=== PATIENT | female | born 1945 | race Caucasian/White ===

== ENCOUNTER 2020-06-13 09:00 | Outpatient (RCR) | payer MEDICARE, SELFPAY ==
--- NOTE | 2020-05-23 12:33 | MHC.PT.EP ---
[facility] [place] [facility] [place] [facility] [place] [facility] [address] Binta Keane [address] [phone] F: [phone] F: [phone] F: [phone] F: [phone] Physical Therapy Plan of Care Date of Evaluation: 05/23/20 Date of Surgery: Diagnosis: R>L shoulder pain Date of script 05/19/2020 onset of sx last fall progressively worse over past few months (-) trauma Assessment: Pt is a 74 y/o R hand dominant female with PMH significant for PACEMAKER, recently expressing gradual progressive onset of R>L shoulder pain which began last winter when pt was taking care of ill . Pt reports progressive intensity of R>L anterior/lateral shoulder pain resulting in difficulty with dressing, hygiene and lifting tasks. She is currently waking at night due to sx in her shoulder and verbalizes frustration of worsening pain. She is verbalizing her R shoulder is sometimes painful at rest, left shoulder intensity is not nearly as bad. She is TTP over long head of biceps, anterior GH joint, distal supraspinatus tendon. She exhibits (+) impingement testing, pain and weakness with resisted IR screening, impaired GH mechanics and exhibits guarded protracted/elevated scapula, IR R shoulder at rest. She would benefit from attending skilled PT services at a frequency of 2x/week x 4-6 weeks to address impairments/deficits of impaired ROM, address issues of weakness posterior RTC and scapular stabilizers, improve posture/mechanics for ADLS, and educate pt regarding pain management/positioning education. She was educated regarding the benefit of using a lumbar support when sitting and external support of pillows under her arm for reading or SL position in effort to unweight GH joint. She was advised to trial ice pack over her clothing inside of a pillowcase x 10-15 minutes as needed for pain relief of R shoulder. She was also trialed with ROCKTAPE three I strips (sensation intact pre application, educated re: removals/adverse reactions/indications for use) for R RTC postural support with (+) outcome. She verbalizes support and reduction in pain with trial. She was advised to remove tape no later than 48 hours with education of skin monitoring pre removal. She exhibits excellent rehab potential. Frequency and Duration: The patient will be seen 2x/week x 4-6 weeks Short Term Goals: 1. Reduce R shoulder pain by 25% to rating on average to 4-5/10. 2.Pt will be able to don coat with good mechanics with R shoulder. 3.Pt will improve sleep tolerance to >6 hours without disturbance secondary to shoulder pain. 4. Pt will be able to reach R shoulder behind back to complete personal hygiene with improved ability. 5. Initiate HEP, self management with trial of ice, positioning, and posture. Ski Lift Operator Goals: 1. Pt will report R shoulder pain no greater than 3/10 with dressing/ADLS. 2. Pt will demonstrate R shoulder flexion 120 AAROM/AROM; 5/5 strength to be able to reach into a cabinet. 3. Pt will be able to shave her underarm with improved ability sx <4/10. 4. Pt will be I HEP and demonstrate carryover of pain management strategy. Treatment Plan: Modalities to reduce pain, spasms and effusion. Manual therapy to restore motion and function. Therapeutic exercise to improve strength and flexibility. Neuromuscular re-education for posture and balance. Therapeutic activities to return to functional activities of daily living. Please sign and return to therapist. Thank you for your referral.
--- NOTE | 2020-06-08 11:58 | MHC.PT.OD ---
[facility] [place] Office [place] Office [place] Office [address] Binta Keane [address] [phone] F: [phone] F: [phone] F: [phone] F: [phone] Physical Therapy Daily Note Diagnosis: R>L shoulder pain Date of script 05/19/2020 onset of sx last fall progressively worse over past few months (-) trauma Date of Surgery: Date of Evaluation: 05/23/20 Date of Treatment: 06/08/20 Treatments to Date: 5 Cancellations to Date: No Shows to Date: Authorized Visits: Insurance End Date: Precautions/ Contraindications:Pacemaker NO TENS/ESTIM Subjective: Reports her shoulder has been much more sore the past few days, 5+/10 at rest, worse with movement. Was woken from sleep numerous times last night due to pain in her R shoulder. Expressing frustration in regards to ongoing sx/pain intensity. She has been icing and taking ibuprofen as recommended. Pain Score and Location: 7 R shoulder Objective Flowsheet: Tests & Measures Taking prescription ibuprofen 1 tablet every 8 hours, has been icing 1-3xdaily (+) palpable clunk with PROM of R GH joint, pain limiting PROM tolerance/ AAROM tolerance (+) compensatory UT shrug with impaired scapulohumeral rhythm (+) [place] (+) Pain and weak IR, ABD (+) TTP long head biceps, anterior shoulder Exercises AROM flexion R shoulder 105 AROM abduction R shoulder 80 degrees AROM IR lateral buttocks AROM ER C3 Significant pain with hori Add L shoulder flexion 132 L shoulder abduction 128 L shoulder IR L1 Pain-free pendulums x 4 minutes Scapular retraction with arms by side x 2 sets 5R AAROM cane flexion in supine x 5R x 20 sec hold AAROM cane scaption in supine HELD ROWS TODAY in trial to assess response to global sx AAROM brayan seated for flexion and scaption x 5R each x 10 sec hold Education re: PROM R shoulder flexion in supine, gentle inferior R GH mobs to tolerance, STM to R lateral shoulder while supine post US. Modalities Seated for continuous US 1.2 alba cm2 x 8 minute 1MHZ to R lateral shoulder in effort to ease pain and improve soft tissue extensibility. Assessment: Fannie has attended 5 sessions of PT to date, demonstrating initial AAROM/AROM improvements of R>L shoulder. Her worsening R shoulder pain with continues to be her biggest factor of concern. She has begin to plateau in her ability to further progress of AAROM>AROM. Her motion slightly improved initially, however now her movement is limited by pain. I feel she would benefit from referral to orthopedics and/or xray>MRI assessment to determine if there if in fact RTC pathology. She has been given the tools/knowledge/HEP in order to maintain her ROM at this time but has been unable to surpass her current ROM due to pain levels and palpable clunking of her shoulder. She demonstrated limited tolerance in her ability to complete low level strengthening activities which is why I feel referral is warranted. She has received treating including STM, US, manual GH mobilization, PROM and therex. Due to pacemaker, she is not a candidate for trial of electrical stimulation. We discussed continued use and trial of increasing frequency of icing to aide in sx. PT Plan: Pt to see Arti Rowley NP next week. Await plan - ? Hold from PT await further imaging- Please advise and thank you for this referral. Short Term Goals: 1. Reduce R shoulder pain by 25% to rating on average to 4-5/10. (06/08: rates lowest is 5/10). 2.Pt will be able to don coat with good mechanics with R shoulder. (06/08: given education to don R UE first, has been doing, goal met. Still has pain but better knowledge) 3.Pt will improve sleep tolerance to >6 hours without disturbance secondary to shoulder pain. (06/08: Having issues sleeping waking at night several times due to pain). 4. Pt will be able to reach R shoulder behind back to complete personal hygiene with improved ability. 5. Initiate HEP, self management with trial of ice, positioning, and posture. Country Sales Manager Goals: 1. Pt will report R shoulder pain no greater than 3/10 with dressing/ADLS. (06/08: no change not med) 2. Pt will demonstrate R shoulder flexion 120 (06/08: some improvement AAROM/AROM; 5/5 strength to be able to reach into a cabinet. (Strength abd 3-/5) 3. Pt will be able to shave her underarm with improved ability sx <4/10. (06/08/ not met) 4. Pt will be I HEP and demonstrate carryover of pain management strategy. (06/08: Current HEP met is buying a shoulder brayan for home, advocated low reps high frequency to avoid irritation of current sx, pt educated and informed not to push into pain- gentle stretch only is the goal). Electronically signed by: Nithya Zamorano, PT, DPT
== END 2020-07-27 09:57 | disposition other institution (70) ==
LOC: HO.PTWFD 09:00
PROVIDERS: Visit Provider Hospitalist
DX: M25.511 Pain in right shoulder (principal); M25.512 Pain in left shoulder; G89.29 Other chronic pain
CPT/HCPCS: 97035; 97110; 97140; 97161; 97530; 97535

== ENCOUNTER 2020-08-04 08:12 | Outpatient (REF) | payer MEDICARE, SELFPAY ==
[2020-08-04 11:37] LABS: Hematocrit 43.4 % (37-47); Mean Corpuscular HGB Conc 32.3 g/dl (31.0-35.0); Mean Corpuscular Hemoglobin 29.4 pg (27.0-33.0); Mean Platelet Volume 8.6 fL (9.4-12.3); Platelet Count 263 X10*3/uL (160-400); Red Blood Count 4.77 X10*6/uL (4.20-5.50); Red Cell Distribution Width 12.9 % (11.0-16.0); White Blood Count 9.2 X10*3/uL (4.8-10.8)
[2020-08-04 11:58] LABS: Glucose Urine UA NEG (NEG); Leukocyte Esterase Urine 1+ (NEG); Nitrite Urine NEG (NEG); Urine Blood TRACE (NEG); Urine Ketones NEG (NEG); Urine Protein NEG (NEG-TRACE)
[2020-08-04 12:00] LABS: Appearance Urine CLEAR; Color Urine YELLOW
[2020-08-04 12:05] LABS: Alanine Aminotransferase 14 U/L (0-31); Alkaline Phosphatase 75 U/L (39-117); Anion Gap 11 (12-20); Aspartate Amino Transferase 15 U/L (5-31); Bilirubin Direct 0.3 mg/dL (0.0-0.5); Bilirubin Total 0.7 mg/dL (0.0-1.0); Blood Urea Nitrogen 20 mg/dL (9-16); Carbon Dioxide 29 mmol/L (22-29); Chloride 102 mmol/L (96-108); Cholesterol 199 mg/dL; Estimated Glomerular Filt Rate 55; Glucose Fasting 107 mg/dL (60-99); HDL Cholesterol 59 mg/dL; LDL Cholesterol Calculated 129 mg/dl; Potassium 4.9 mmol/L (3.3-5.1); Sodium 137 mmol/L (135-145); Total Protein 6.7 g/dL (6.5-8.0); Triglycerides 59 mg/dL
[2020-08-04 12:26] LABS: Bacteria Urine TRACE /LPF; RBC Urine 0 /HPF (0); Renal Epithelial Cells Urine TRACE /LPF; Squamous Epithelial Cell Urine TRACE /LPF; TSH reflex Free T4 2.87 uIU/mL (0.32-4.0)
== END 2020-08-04 08:13 | disposition home or self-care (01) ==
LOC: HO.WFDLDS 08:12
PROVIDERS: Visit Provider Hospitalist
DX: E78.00 Pure hypercholesterolemia, unspecified (principal); E03.9 Hypothyroidism, unspecified; I10 Essential (primary) hypertension; S46.911D Strain of unspecified muscle, fascia and tendon at shoulder and upper arm level, right arm, subsequent encounter; X58.XXXD Exposure to other specified factors, subsequent encounter
CPT/HCPCS: 36415; 80048; 80061; 80076; 81001; 84443; 85027

== ENCOUNTER 2021-02-12 08:50 | Outpatient (REF) | payer MEDICARE, SELFPAY ==
--- NOTE | ~2021-02-12 | MM_ITS ---
EXAMINATION: MM SCREENING DIGITAL BREAST TOMOSYNTHESIS, BILATERAL CLINICAL INFORMATION: Screening. Asymptomatic. The lifetime risk of breast cancer based on the Tyrer-Cuzick Model is 3%. COMPARISON: Mammography: 02/21/2020, 02/07/2020, 10/02/2018, 11/13/2017 TECHNIQUE: Digital breast tomosynthesis is performed in both the craniocaudal and mediolateral oblique views along with computer-aided detection (CAD). Synthesized 2D images are generated from the tomosynthesis. Additional exaggerated left CC and additional left MLO views are provided. FINDINGS: The breasts are heterogeneously dense, which may obscure small masses (ACR BI-RADS breast composition Category c). There are no significant masses, abnormal calcifications, or other abnormalities. Parenchymal pattern is similar to prior studies. There is no developing density or interval mass or architectural abnormality. Pacemaker generator partly overlies the posterior upper left axilla on the MLO view. There are no significant changes. MM/MM tomosynthesis screening BI IMPRESSION: No mammographic evidence of malignancy. ASSESSMENT: BI-RADS 1: Negative RECOMMENDATION: Routine annual mammography screening. This patient's information was entered into a reminder system with a target due date for their next mammogram.
== END 2021-02-12 08:51 | disposition home or self-care (01) ==
LOC: HO.MAMMO 08:50
PROVIDERS: PCP Hospitalist; Visit Provider Internal Medicine
DX: Z12.31 Encounter for screening mammogram for malignant neoplasm of breast (principal)
CPT/HCPCS: 77063; 77067

== ENCOUNTER 2021-02-22 08:22 | Outpatient (REF) | payer MEDICARE, SELFPAY ==
[2021-02-22 11:32] LABS: Anion Gap 13 (12-20); B Type Natriuretic Peptide 22 pg/mL (<100); Blood Urea Nitrogen 17 mg/dL (9-16); Calcium 9.4 mg/dL (8.4-10.2); Carbon Dioxide 25 mmol/L (22-29); Chloride 109 mmol/L (96-108); Estimated Glomerular Filt Rate 54; Glucose Random 98 mg/dL (60-115); Potassium 3.8 mmol/L (3.3-5.1); Sodium 143 mmol/L (135-145)
== END 2021-02-22 08:23 | disposition home or self-care (01) ==
LOC: HO.WFDLDS 08:22
PROVIDERS: PCP Orthopaedic Surgery; Visit Provider Family Medicine
DX: Z00.00 Encounter for general adult medical examination without abnormal findings (principal); I50.9 Heart failure, unspecified
CPT/HCPCS: 36415; 80048; 83880

== ENCOUNTER 2022-04-18 15:01 | Outpatient (REF) | payer MEDICARE, SELFPAY ==
--- NOTE | ~2022-04-18 | MM_ITS ---
EXAMINATION: MM SCREENING DIGITAL BREAST TOMOSYNTHESIS, BILATERAL CLINICAL INFORMATION: Screening. Asymptomatic. The lifetime risk of breast cancer based on the Tyrer-Cuzick Model is 2%. COMPARISON: Mammography: 02/12/2021, 02/21/2020, 02/07/2020, 10/02/2018 TECHNIQUE: Digital breast tomosynthesis is performed in both the craniocaudal and mediolateral oblique views along with computer-aided detection (CAD). Synthesized 2D images are generated from the tomosynthesis. Additional left MLO view is provided. FINDINGS: The breasts are heterogeneously dense, which may obscure small masses (ACR BI-RADS breast composition Category c). Breast tissue composition borders on average fibroglandular. Right CC view has a 0.6 cm oval asymmetric density approximately 7 cm from the nipple. No correlate on MLO view. Patient will be recalled for additional imaging. The remainder of the bilateral breasts show no significant changes from prior studies. There are no abnormal calcifications. The axilla are unremarkable. The skin contours are smooth. Pacemaker generator is partly imaged high left axilla on MLO view. MM/MM tomosynthesis screening BI IMPRESSION: Right: -Asymmetric density mid medial right breast on CC view. Left: -No mammographic evidence of malignancy. ASSESSMENT: BI-RADS 0: Incomplete - Need Additional Imaging Evaluation RECOMMENDATION: 1. Additional views of the right breast (rolled CC x 2; spot CC). 2. Targeted ultrasound if warranted after review of the additional views. 3. Radiology department staff will contact the patient for additional imaging. This patient's information was entered into a reminder system with a target due date for their next mammogram.
== END 2022-04-18 15:02 | disposition home or self-care (01) ==
LOC: HO.MAMMO 15:01
PROVIDERS: PCP Hospitalist; Visit Provider Hospitalist
DX: Z12.31 Encounter for screening mammogram for malignant neoplasm of breast (principal)
CPT/HCPCS: 77063; 77067

== ENCOUNTER 2022-04-30 13:12 | Outpatient (REF) | payer MEDICARE, SELFPAY ==
--- NOTE | ~2022-04-30 | MM_ITS ---
EXAMINATION: MM DIAGNOSTIC DIGITAL BREAST TOMOSYNTHESIS, RIGHT CLINICAL INFORMATION: Recall from screening for small asymmetric density mid medial right breast on CC view. No MLO correlate. TC score 2%. COMPARISON: Mammography: 04/18/2022, 02/12/2021, 02/07/2020 TECHNIQUE: Digital breast tomosynthesis is performed. 2D images are generated from the tomosynthesis. The following views are obtained: Rolled right CC x2, spot right CC. FINDINGS: The breasts are heterogeneously dense, which may obscure small masses (ACR BI-RADS breast composition Category c). Breast tissue composition borders on average fibroglandular. The additional views show no persistent asymmetric density. No developing density or architectural abnormality. Fibroglandular densities are similar to prior studies. Results are discussed with the patient at time of visit. MM/MM tomosynthesis added views R IMPRESSION: Additional views show no significant changes from prior studies. ASSESSMENT: BI-RADS 2: Benign RECOMMENDATION: Routine annual mammography screening. This patient's information was entered into a reminder system with a target due date for their next mammogram.
== END 2022-04-30 13:13 | disposition home or self-care (01) ==
LOC: HO.MAMMO 13:12
PROVIDERS: PCP Hospitalist; Visit Provider Hospitalist
DX: R92.2 Inconclusive mammogram (principal)
CPT/HCPCS: 77061; 77065

== ENCOUNTER 2022-10-24 07:47 | Outpatient (REF) | payer MEDICARE, SELFPAY ==
[2022-10-24 12:40] LABS: Alanine Aminotransferase 13 U/L (0-31); Alkaline Phosphatase 79 U/L (39-117); Anion Gap 13 (12-20); Aspartate Amino Transferase 17 U/L (5-31); Bilirubin Total 0.8 mg/dL (0.0-1.0); Blood Urea Nitrogen 14 mg/dL (9-16); Calcium 9.3 mg/dL (8.4-10.2); Carbon Dioxide 26 mmol/L (22-29); Chloride 109 mmol/L (96-108); Cholesterol 200 mg/dL; Estimated Glomerular Filt Rate > 60; Glucose Fasting 97 mg/dL (60-99); HDL Cholesterol 48 mg/dL; LDL Cholesterol Calculated 130 mg/dl; Potassium 4.5 mmol/L (3.3-5.1); Sodium 143 mmol/L (135-145); Total Protein 6.4 g/dL (6.5-8.0); Triglycerides 113 mg/dL; Vitamin B12 > 2000 pg/mL (200-900)
[2022-11-01 16:04] LABS: Vitamin D 25-OH, D2 <4 ng/mL; Vitamin D 25-OH, D3 35 ng/mL; Vitamin D 25-OH, Total 35 ng/mL (30-100)
== END 2022-10-24 07:48 | disposition home or self-care (01) ==
LOC: HO.10HDL 07:47
PROVIDERS: Visit Provider Hospitalist
DX: E03.9 Hypothyroidism, unspecified (principal); E66.9 Obesity, unspecified; E78.00 Pure hypercholesterolemia, unspecified; R53.83 Other fatigue; E55.9 Vitamin D deficiency, unspecified; I10 Essential (primary) hypertension
CPT/HCPCS: 36415; 80053; 80061; 82306; 82607; 84443

== ENCOUNTER 2023-04-24 08:49 | Outpatient (REF) | payer MEDICARE, SELFPAY ==
--- NOTE | ~2023-04-24 | MM_ITS ---
EXAMINATION: MM SCREENING DIGITAL BREAST TOMOSYNTHESIS, BILATERAL CLINICAL INFORMATION: Screening. Asymptomatic. COMPARISON: Mammography: This study is compared with prior exams dating back to 2019. TECHNIQUE: Digital breast tomosynthesis is performed in both the craniocaudal and mediolateral oblique views along with computer-aided detection (CAD). Synthesized 2D images are generated from the tomosynthesis. FINDINGS: The breasts are heterogeneously dense, which may obscure small masses (ACR BI-RADS breast composition Category c). There is a pacemaker the superior aspect of the left side of the chest. There are no significant masses, abnormal calcifications, or other abnormalities. MM/MM tomosynthesis screening BI IMPRESSION: No mammographic evidence of malignancy. ASSESSMENT: BI-RADS BI-RADS 1 - Negative RECOMMENDATION: Routine annual mammography screening. 1 year F/U This examination should not preclude the clinical evaluation of a suspicious palpable abnormality. This patient's information was entered into a reminder system with a target due date for their next mammogram.
== END 2023-04-24 08:50 | disposition home or self-care (01) ==
LOC: HO.MAMMO 08:49
PROVIDERS: PCP Hospitalist; Visit Provider Hospitalist
DX: Z12.31 Encounter for screening mammogram for malignant neoplasm of breast (principal)
CPT/HCPCS: 77063; 77067

== ENCOUNTER → 2023-04-24 09:15 | Outpatient (BNV) | payer MEDICARE, SELFPAY | PROVIDERS: PCP Hospitalist; Visit Provider Radiology Diagnostic Radiology | DX: Z12.31 Encounter for screening mammogram for malignant neoplasm of breast (principal) | CPT/HCPCS: 77063; 77067 ==

== ENCOUNTER 2024-04-16 12:13 | Outpatient (AMB) | payer MEDICARE, SELFPAY ==
--- NOTE | 2024-04-16 12:15 | A.OFFPC_ITS ---
Vital Signs 04/16/24 12:22 Height 5 ft 4 in Weight 173 lb BMI 29.7 BP 134/72 Blood Pressure Location Lt brachial Position Sitting Respiration 14 Pulse 76 Pulse Source Pulse Oximeter Pulse Oximetry (%) 97 Oxygen Delivery Method Room Air Intake Visit Reasons: Transfer of Care former [facility] Intake Note: to establish care Allergies No Known Allergies Allergy (Verified 04/16/24 12:29) Medication List - Last Reconciled 04/16/24 by Latonia Macedo, PROFESSIONAL PROGRAMMER ANALYST- aspirin (Martina Chewable Low Dose Aspirin) 81 mg PO DAILY cholecalciferol (vitamin D3) 25 mcg PO DAILY ibuprofen 400 mg PO Q8H PRN 1 month levothyroxine 50 mcg PO DAILY lisinopril 5 mg PO DAILY Tobacco use date assessed: 04/16/24 Fall risk assessment: 2 + Falls in past year Last assessed Fall Risk: 04/16/24 Dental Screening Dental Screen Date: 04/16/24 Did you have a dental visit in the last 12 months?: No Did you have a dental problem in the last 6 months where you did not have access to dental care?: No Was dental information given to patient?: Patient has dentist HPI HPI Comments History of Present Illness Details Michael 78-year-old female with vitamin-D defici ency, obesity, hyperlipidemia, hypothyroidism, hypertension, osteoarthritis, sick sinus syndrome/AF status post dual-chamber pacemaker, multiple falls, former smoker Status post pacemaker placed in 2016, right shoulder replacement Social: Lives in an in-law apartment with her son; has been [place] 52 years recently Health Maintenance: Mammo 04/24/23 normal Tdap 2021 Flu 2023 Specialists Cards annual visits Ortho Here today to [facility] care Today she would like to discuss a chronic cough that she has had for several months even years. She reports that it is a nagging cough. Does have a tickle in her throat at times. Can be associated with some mucus. Although she does report that she recently had a cold and she did not have any issues with any mucus. Sometimes she does report that she feels mucus in her throat and has a hard time getting it up. She has not tried any medications at home to help with this. She denies any trouble swallowing, asthma or COPD history. She is a former smoker quit more than 40 years ago. She is on an ARLEN inhibitor She also complains of a burning sensation described as fire that started 3-4 months ago in her left wrist. About 6 months ago she did notice palpable lumps that are painless on the palmar surface of her left hand. She is right-handed. She denies any overt injury prior to the onset of the burning in her wrist. Reports that her usual activities of daily living such as driving and talking on the phone and opening jars elicit the burning sensation. She did have 2 mechanical falls in the past however this is unrelated to the burning in her wrist She has hypothyroidism and is currently maintained on levothyroxine 50 mcg. She denies any hypo or hyperthyroid symptoms. She is overdue for labs. Exam Awake alert oriented, no acute distress TM intact and clear bilat, hearing aids bilat Nares patent, turbinates within normal limits Pharynx clear without erythema or postnasal drip No thyromegaly, trachea midline Regular rate and rhythm Lung sounds clear to auscultation bilat Left arm neurovascularly intact, palpable bumps along the distal palmar crease, normal strength/tone, wrist FROM, unable to ilicit burning sensation, no obvious deformities, negative phelans and tinels Plan Check labs today. Labs from today show a normal CBC, normal CMP, normal renal function, random glucose 101, normal LFTs, total cholesterol 205, LDL 137, HDL 49, triglycerides 97, normal vitamin-D, folate normal, TSH 2.20 refill levothyroxine same sode 50 mcg sent to pharmacy will review lipid profile at next visit Stop ARLEN inhibitor to see if this is causing the cough. Refer to hand surgery for left hand wrist issue Return to the office in 2 weeks to follow up on cough and labs, sooner as needed This note is constructed using voice recognition software. While every effort has been made to ensure accuracy in operational risk analyst, still errors may have been included Sometimes, these errors may affect the content or meaning of the given sentence . Total time spent caring for the patient today was 40 minutes. This includes time spent before the visit reviewing the chart, time spent during the visit, and time spent after the visit on documentation [facility] Medical History (Updated 04/16/24 @ 13:02 by Latonia Macedo, PROFESSIONAL PROGRAMMER ANALYST-) Shoulder pain, bilateral Arthritis of right shoulder region Muscle strain of right shoulder Fatigue Left anterior shoulder pain Surgical History History of right shoulder replacement History of pacemaker Family History Father Advanced cardiac disease Emphysema of lung Mother No problems noted. Social History (Updated 04/16/24 @ 12:23 by Aaliyah Franz MA) Household Members: None Both parents involved: No Caregiver staying overnight: No Housing: House Are you a primary date night caregiver to a significant other at home: No Do you presently have visiting nurse or other home services: No 75 years or older and lives alone: No Alcohol intake: never Patient Tobacco Use Status: Never used Tobacco e-Cigarette/Vaping Use: Never Used service: No Current occupational status: retired Cognitive needs: No Hearing needs: Yes (hearing aide) Vision needs: No Questionnaire PHQ-9 Over the last 2 weeks, how often have you been bothered by any of the following problems? 1. Little interest or pleasure in doing things: not at all 2. Feeling down, depressed, or hopeless: not at all 3. Trouble falling or staying asleep, or sleeping too much: not at all 4. Feeling tired or having little energy: not at all 5. Poor appetite or overeating: not at all 6. Feeling bad about yourself - or that you are a failure or have let yourself or your family down: not at all 7. Trouble concentrating on things, such as reading the newspaper or watching television: not at all 8. Moving or speaking so slowly that other people could have noticed. Or the opposite - being so fidgety or restless that you have been moving around a lot more than usual: not at all 9. Thoughts that you would be better off or of hurting yourself in some way: not at all Total score: 0 Depression Screening Interpretation: Negative Depression Screening Done: Yes 43022 - PHQ-9 Billing: Yes Source: Developed by Drs. Artem Bustamante, Rhona Yadav, Todd Cage and colleagues, with an educational coty from [email or web address]. Thrive Questionnaire Date Thrive assessed: 04/16/24 I am a: Patient What is your living situation today?: I have a steady place to live Within the past 12 months, did the food you bought not last and you didn't have the money to get more?: Never true Within the past 12 months, did you worry whether your food would run out before you got money to buy more?: Never true Do you have trouble paying for medicines?: No Do you have trouble getting transportation to medical appointments?: No Do you have trouble paying your heating and electricity bill?: No Do you have trouble taking care of your child, family member or friend?: No Do you have trouble with day-to-day activities such as bathing, preparing meals, shopping, managing finances, etc.?: No Are you currently unemployed and looking for a job?: No Are you interested in more education?: No THRIVE Score: 0 AUDIT C Alcohol Use Questionnaire (AUDIT-C) 1. How often do you have a drink containing alcohol?: 2-3 times a week 2. How many drinks containing alcohol do you have on a typical day when you are drinking?: 1 or 2 3. How often do you have six or more drinks on one occasion?: Never Total Score: 3 Score Reviewed/Action Taken: Yes ROSALIE-7 AMB Questionnaire ROSALIE-7 Date ROSALIE - 7 assessed: 04/16/24 Feeling nervous, anxious, or on edge: 0 = Not at all Not being able to stop or control worryin = Not at all Worrying too much about different things: 0 = Not at all Trouble relaxin = Not at all Being so restless that it is hard to sit still: 0 = Not at all Becoming easily annoyed or irritable: 0 = Not at all Feeling afraid as if something awful might happen: 0 = Not at all Total ROSALIE-7 score (0-4 normal; 5-9 mild; 10-14 moderate; 15-21 severe): 0 Source: Developed by Drs. Artem Bustamante, Rhona Yadav, Todd Cage and colleagues, with an educational coty from [email or web address]. ROSALIE-7 Assessment Billing ROSALIE-7 Assessment Tool: ROSALIE-7 Assessment 07907 Physical exam (Primary Care) Vital Signs: Last Vital Signs Pulse 76 04/16/24 12:22 Resp 14 04/16/24 12:22 BP 134/72 04/16/24 12:22 Pulse Ox 97 04/16/24 12:22 Oxygen Delivery Method Room Air 04/16/24 12:22 BMI result Body Mass Index 29.7 Tobacco/Smoking Status: Tobacco use Status Tobacco use date assessed 04/16/24 04/16/24 12:25 Patient Tobacco Use Status Never used Tobacco 04/16/24 12:23 e-Cigarette/Vaping Use Never Used 04/16/24 12:25 PHQ-9: PHQ-9 Score PHQ-9: Total score 0 04/16/24 13:03 Depression Screening Interpretation: Negative Thrive Assessment: Date of Thrive Assessment Date Thrive assessed 04/16/24 04/16/24 12:18 Coding Level of Care Code Est Pt Level 5 (09793) Complex EM visit Add On G2211 Diagnoses Hypertension, essential I10 Hypothyroidism (acquired) E03.9 Vitamin D deficiency E55.9 Left wrist pain M25.532 Left hand paresthesia R20.2 Chronic cough R05.3 Cough type: chronic High cholesterol E78.00 Additional Codes ROSALIE-7 Assessment Billing - ROSALIE-7 Assessment Tool: ROSALIE-7 Assessment 24225 ([id number]) Assessment & Plan Assessment & Plan (1) Hypertension, essential: Code(s): I10 - Essential (primary) hypertension Category: Medical Plan: . (2) Hypothyroidism (acquired): Code(s): E03.9 - Hypothyroidism, unspecified Category: Medical Plan: . (3) Vitamin D deficiency: Code(s): E55.9 - Vitamin D deficiency, unspecified Category: Medical Plan: . (4) Left wrist pain: Code(s): M25.532 - Pain in left wrist Category: Medical Plan: . (5) Left hand paresthesia: Code(s): R20.2 - Paresthesia of skin Category: Medical Plan: . (6) Cough: Code(s): R05.9 - Cough, unspecified Category: Medical Qualifiers: Cough type: chronic Qualified Code(s): R05.3 - Chronic cough Plan: . (7) High cholesterol: Code(s): E78.00 - Pure hypercholesterolemia, unspecified Category: Medical Plan: . Plan . Orders: Orders TSH reflex Free T4 Today E03.9 - Hypothyroidism, unspecified, E55.9 - Vitamin D deficiency, unspecified, I10 - Essential (primary) hypertension Vitamin D 25-OH Total Today E03.9 - Hypothyroidism, unspecified, E55.9 - Vitamin D deficiency, unspecified, I10 - Essential (primary) hypertension Comprehensive [place]. Panel Fast Today E03.9 - Hypothyroidism, unspecified, E55.9 - Vitamin D deficiency, unspecified, I10 - Essential (primary) hypertension Lipid Panel Today E03.9 - Hypothyroidism, unspecified, E55.9 - Vitamin D deficiency, unspecified, I10 - Essential (primary) hypertension Microalbumin, Random (w Creat) Today E03.9 - Hypothyroidism, unspecified, E55.9 - Vitamin D deficiency, unspecified, I10 - Essential (primary) hypertension Vitamin B12 and Folate Today E03.9 - Hypothyroidism, unspecified, E55.9 - Vitamin D deficiency, unspecified, I10 - Essential (primary) hypertension Complete Blood Count no Diff Today E03.9 - Hypothyroidism, unspecified, E55.9 - Vitamin D deficiency, unspecified, I10 - Essential (primary) hypertension Referrals Hand Surgery Referral M25.532 - Pain in left wrist, R20.2 - Paresthesia of skin Medications: Refilled levothyroxine 50 mcg PO DAILY 90 tabs 1RF
[2024-04-16 12:22] VITALS: BP 134/72; PULSE 76; RESP 14; O2SAT 97; BMI 29.7
== END 2024-04-16 12:53 | disposition home or self-care (01) ==
PROVIDERS: PCP Nurse Practitioner Family; Visit Provider Nurse Practitioner Family
DX: I10 Essential (primary) hypertension (principal); E03.9 Hypothyroidism, unspecified; E55.9 Vitamin D deficiency, unspecified; M25.532 Pain in left wrist; R20.2 Paresthesia of skin; R05.3 Chronic cough; E78.00 Pure hypercholesterolemia, unspecified

== ENCOUNTER → 2024-04-16 12:13 | Outpatient (BNVA) | payer MEDICARE, SELFPAY | PROVIDERS: PCP Nurse Practitioner Family; Visit Provider Nurse Practitioner Family | DX: I10 Essential (primary) hypertension (principal); E03.9 Hypothyroidism, unspecified; E55.9 Vitamin D deficiency, unspecified; M25.532 Pain in left wrist; R20.2 Paresthesia of skin; R05.3 Chronic cough; E78.00 Pure hypercholesterolemia, unspecified; Z79.899 Other long term (current) drug therapy | CPT/HCPCS: 96127; 99212 ==

== ENCOUNTER 2024-04-16 13:13 | Outpatient (REF) | payer MEDICARE, SELFPAY ==
[2024-04-16 14:10] LABS: Hemoglobin 14.4 g/dl (12.0-16.0); Mean Corpuscular HGB Conc 33.5 g/dl (31.0-35.0); Mean Corpuscular Hemoglobin 29.7 pg (27.0-33.0); Mean Corpuscular Volume 88.7 fL (80.0-98.0); Mean Platelet Volume 9.1 fL (9.4-12.3); Platelet Count 250 X10*3/uL (160-400); Red Blood Count 4.85 X10*6/uL (4.20-5.50); Red Cell Distribution Width 12.7 % (11.0-16.0); White Blood Count 8.6 X10*3/uL (4.8-10.8)
[2024-04-16 15:07] LABS: Alanine Aminotransferase 14 U/L (0-31); Albumin Level 4.2 g/dL (3.5-5.0); Alkaline Phosphatase 80 U/L (39-117); Anion Gap 13 (12-20); Aspartate Amino Transferase 19 U/L (5-31); Bilirubin Total 0.6 mg/dL (0.0-1.0); Blood Urea Nitrogen 14 mg/dL (9-16); Calcium 9.2 mg/dL (8.4-10.2); Carbon Dioxide 27 mmol/L (22-29); Chloride 105 mmol/L (96-108); Cholesterol 205 mg/dL (<200); Estimated Glomerular Filt Rate > 60; Glucose Fasting 101 mg/dL (60-99); HDL Cholesterol 49 mg/dL (>40); LDL Cholesterol Calculated 137 mg/dL (<100); Potassium 4.2 mmol/L (3.3-5.1); Sodium 141 mmol/L (135-145); Total Protein 7.1 g/dL (6.5-8.0); Triglycerides 97 mg/dL (<150)
[2024-04-16 15:53] LABS: Vitamin D 25-OH Total 56.6 ng/mL (>30)
[2024-04-16 16:08] LABS: Folate 11.3 ng/mL (> or = 4.0); Vitamin B12 624 pg/mL (200-900)
[2024-04-16 18:00] LABS: Creatinine Urine 98.24 mg/dL; Microalbum/Creatinine Ratio Ur 6.1 ug/mg cr (<30)
== END 2024-04-16 13:14 | disposition home or self-care (01) ==
LOC: HO.WFDLDS 13:13
PROVIDERS: Visit Provider Nurse Practitioner Family
DX: E55.9 Vitamin D deficiency, unspecified (principal); E03.9 Hypothyroidism, unspecified; I10 Essential (primary) hypertension
CPT/HCPCS: 36415; 80053; 80061; 82043; 82306; 82570; 82607; 82746; 84443; 85027

== ENCOUNTER 2024-04-30 12:17 | Outpatient (AMB) | payer MEDICARE, SELFPAY ==
--- NOTE | 2024-04-30 12:19 | MHC.PC.OV ---
Vital Signs 04/30/24 12:22 04/30/24 12:40 Height 5 ft 4 in Weight 173 lb 4 oz BMI 29.7 BP 136/74 124/64 Blood Pressure Location Lt brachial Lt brachial Position Sitting Sitting Respiration 14 Pulse 73 Pulse Source Pulse Oximeter Pulse Oximetry (%) 97 Oxygen Delivery Method Room Air Intake Visit Reasons: 2 weeks 30 min fu labs/cough/HTN Intake Note: follow up on labs, and hypertension Temp Recruiter Required: No Allergies No Known Allergies Allergy (Verified 04/30/24 12:27) Medication List - Last Reconciled 04/30/24 by Latonia Macedo, PUBLIC HEALTH INSPECTOR- aspirin (Martina Chewable Low Dose Aspirin) 81 mg PO DAILY cholecalciferol (vitamin D3) 25 mcg PO DAILY ibuprofen 400 mg PO Q8H PRN 1 month levothyroxine 50 mcg PO DAILY losartan 25 mg PO DAILY Tobacco use date assessed: 04/16/24 Dental Screening Dental Screen Date: 04/16/24 HPI HPI Comments History of Present Illness Details Michael 78-year-old female with vitamin-D deficiency, obesity, hyperlipidemia, hypothyroidism, hypertension, osteoarthritis, sick sinus syndrome/AF status post dual-chamber pacemaker, multiple falls, former smoker Status post pacemaker placed in 2016, right shoulder replacement Social: Lives in an in-law apartment with her son; has been [place] 52 years recently Health Maintenance: Mammo 04/24/23 normal Tdap 2021 Flu 2023 Specialists Cards annual visits Ortho Since last OV, her ACEI was stopped to see if this was causing her cough. After 3 days she developed a headache. After walking up the stair the next day felt lightheaded. Dtr in law checked BP and reports it was elevated. She did call me and I ok'd her to go back on the ACEI as this was only causing an annoying cough and she was going away on vacation. She continued on ACEI until Friday. She started losartan 25mg on Friday and states everything has been going ok. Monitoring BP at home and stable, wonders if cuff is accurrate. Cough is much better off the ACEI. The following was reviewed w/ her today. Hyperlipidemia. She has never been on statin. DOes not like to take medication. Labs from 04/16/24 show a normal CBC, normal CMP, normal renal function, random glucose 101, normal LFTs, total cholesterol 205, LDL 137, HDL 49, triglycerides 97, normal vitamin-D, folate normal, TSH 2.20 For left hand parasthesia, left wrist pain referred to [facility] Ortho but she was seen at [facility] in the past, would like referral to Dr Tello Benavidez @ [facility]. Would like to exercise at the Center. Needs clearance letter for this. Exam Awake alert oriented, no acute distress Regular rate and rhythm Lung sounds clear to auscultation bilat Left arm neurovascularly intact, palpable bumps along the distal palmar crease, normal strength/tone, wrist FROM, unable to ilicit burning sensation, no obvious deformities, negative phelans and tinels Plan Start Zetia 10mg QD, LDL goal <70, monitor labs q 6 months. Stay off ACEI as this caused a cough. BP well controlled on Losartan 25 mg w/o side effects, cont., refill sent Exercise letter given today Bring BP cuff to next visit to eval if it is accurate, sooner with NN if you would like Referral updated for [facility] for L hand. RTO 6 months w/ repeat labs 1 week before, sooner PRN This note is constructed using voice recognition software. While every effort has been made to ensure accuracy in lumber carrier operator, still errors may have been included Sometimes, these errors may affect the content or meaning of the given sentence . Total time spent caring for the patient today was 30 minutes. This includes time spent before the visit reviewing the chart, time spent during the visit, and time spent after the visit on [id number] [facility] Medical History (Updated 04/30/24 @ 14:53 by Latonia Macedo, [facility]) Shoulder pain, bilateral Arthritis of right shoulder region Muscle strain of right shoulder Fatigue Left anterior shoulder pain Surgical History History of right shoulder replacement History of pacemaker Family History Father Advanced cardiac disease Emphysema of lung Mother No problems noted. Social History (Updated 04/16/24 @ 12:23 by Aaliyah Franz MA) Household Members: None Both parents involved: No Caregiver staying overnight: No Housing: House Are you a primary critical care clinical nurse specialist to a significant other at home: No Do you presently have visiting nurse or other home services: No 75 years or older and lives alone: No Alcohol intake: never Patient Tobacco Use Status: Never used Tobacco e-Cigarette/Vaping Use: Never Used service: No Current occupational status: retired Cognitive needs: No Hearing needs: Yes (hearing aide) Vision needs: No Questionnaire PHQ-9 Over the last 2 weeks, how often have you been bothered by any of the following problems? 1. Little interest or pleasure in doing things: not at all 2. Feeling down, depressed, or hopeless: not at all 3. Trouble falling or staying asleep, or sleeping too much: not at all 4. Feeling tired or having little energy: not at all 5. Poor appetite or overeating: not at all 6. Feeling bad about yourself - or that you are a failure or have let yourself or your family down: not at all 7. Trouble concentrating on things, such as reading the newspaper or watching television: not at all 8. Moving or speaking so slowly that other people could have noticed. Or the opposite - being so fidgety or restless that you have been moving around a lot more than usual: not at all 9. Thoughts that you would be better off or of hurting yourself in some way: not at all Total score: 0 31569 - PHQ-9 Billing: Yes Source: Developed by Drs. Artem Bustamante, Rhona Yadav, Todd Cage and colleagues, with an educational coty from [employer]. Thrive Questionnaire Date Thrive assessed: 04/30/24 I am a: Patient What is your living situation today?: I have a steady place to live Within the past 12 months, did the food you bought not last and you didn't have the money to get more?: Never true Within the past 12 months, did you worry whether your food would run out before you got money to buy more?: Never true Do you have trouble paying for medicines?: No Do you have trouble getting transportation to medical appointments?: No Do you have trouble paying your heating and electricity bill?: No Do you have trouble taking care of your child, family member or friend?: No Do you have trouble with day-to-day activities such as bathing, preparing meals, shopping, managing finances, etc.?: No Are you currently unemployed and looking for a job?: No Are you interested in more education?: No Please select the resources that you would like help with: None Currently or been in a relationship where the following occur: No concerns reported THRIVE Score: 0 AUDIT C Alcohol Use Questionnaire (AUDIT-C) 1. How often do you have a drink containing alcohol?: 2-4 times a month 2. How many drinks containing alcohol do you have on a typical day when you are drinking?: 1 or 2 3. How often do you have six or more drinks on one occasion?: Never Total Score: 2 ROSALIE-7 AMB Questionnaire ROSALIE-7 Date ROSALIE - 7 assessed: 04/30/24 Feeling nervous, anxious, or on edge: 0 = Not at all Not being able to stop or control worryin = Not at all Worrying too much about different things: 0 = Not at all Trouble relaxin = Not at all Being so restless that it is hard to sit still: 0 = Not at all Becoming easily annoyed or irritable: 0 = Not at all Feeling afraid as if something awful might happen: 0 = Not at all Total ROSALIE-7 score (0-4 normal; 5-9 mild; 10-14 moderate; 15-21 severe): 0 Source: Developed by Drs. Artem Bustamante, Rhona Yadav, Todd Cage and colleagues, with an educational coty from [employer]. ROSALIE-7 Assessment Billing ROSALIE-7 Assessment Tool: ROSALIE-7 Assessment 78952 Physical exam (Primary Care) Vital Signs: Last Vital Signs Pulse 73 04/30/24 12:22 Resp 14 04/30/24 12:22 BP 124/64 04/30/24 12:40 Pulse Ox 97 04/30/24 12:22 Oxygen Delivery Method Room Air 04/30/24 12:22 BMI result Body Mass Index 29.7 Tobacco/Smoking Status: Tobacco use Status Tobacco use date assessed 04/16/24 04/30/24 12:21 Patient Tobacco Use Status Never used Tobacco 04/30/24 12:21 e-Cigarette/Vaping Use Never Used 04/30/24 12:21 PHQ-9: PHQ-9 Score PHQ-9: Total score 0 04/30/24 12:24 Thrive Assessment: Date of Thrive Assessment Date Thrive assessed 04/30/24 04/30/24 12:21 Currently or been in a relationship where the following occur: No concerns reported Coding Level of Care Code Est Pt Level 4 (25125) Complex EM visit Add On G2211 Diagnoses Hypothyroidism (acquired) E03.9 Hypertension, essential I10 High cholesterol E78.00 Vitamin D deficiency E55.9 Left wrist pain M25.532 Left hand paresthesia R20.2 ARLEN-inhibitor cough R05.8; [id number] Additional Codes ROSALIE-7 Assessment Billing - ROSALIE-7 Assessment Tool: ROSALIE-7 Assessment 34328 ([id number]) Assessment & Plan Assessment & Plan (1) Hypothyroidism (acquired): Code(s): E03.9 - Hypothyroidism, unspecified Category: Medical Plan: . (2) Hypertension, essential: Code(s): I10 - Essential (primary) hypertension Category: Medical Plan: . (3) High cholesterol: Code(s): E78.00 - Pure hypercholesterolemia, unspecified Category: Medical Plan: . (4) Vitamin D deficiency: Code(s): E55.9 - Vitamin D deficiency, unspecified Category: Medical Plan: . (5) Left wrist pain: Code(s): M25.532 - Pain in left wrist Category: Medical Plan: . (6) Left hand paresthesia: Code(s): R20.2 - Paresthesia of skin Category: Medical Plan: . (7) ARLEN-inhibitor cough: Code(s): R05.8 - Other specified cough; T46.4X5A - Adverse effect of aueinrqzslh-xpsexnozvb-aqlpxh inhibitors, initial encounter Category: Medical Plan . Orders: Orders Vitamin D 25-OH Total 09/28/24 E03.9 - Hypothyroidism, unspecified, E55.9 - Vitamin D deficiency, unspecified, E78.00 - Pure hypercholesterolemia, unspecified, I10 - Essential (primary) hypertension Lipid Panel 09/28/24 E03.9 - Hypothyroidism, unspecified, E55.9 - Vitamin D deficiency, unspecified, E78.00 - Pure hypercholesterolemia, unspecified, I10 - Essential (primary) hypertension TSH reflex Free T4 09/28/24 E03.9 - Hypothyroidism, unspecified, E55.9 - Vitamin D deficiency, unspecified, E78.00 - Pure hypercholesterolemia, unspecified, I10 - Essential (primary) hypertension Referrals Hand Surgery Referral M25.532 - Pain in left wrist, R20.2 - Paresthesia of skin Medications: New ezetimibe (Zetia) 10 mg PO DAILY 90 tabs 2RF Refilled losartan 25 mg PO DAILY 90 tabs 0RF
[2024-04-30 12:22] VITALS: BP 136/74; PULSE 73; RESP 14; O2SAT 97; BMI 29.7
[2024-04-30 12:40] VITALS: BP 124/64
== END 2024-04-30 12:53 | disposition home or self-care (01) ==
LOC: HO.HMCFM 12:17
PROVIDERS: PCP Nurse Practitioner Family; Visit Provider Nurse Practitioner Family
DX: E03.9 Hypothyroidism, unspecified (principal); I10 Essential (primary) hypertension; E78.00 Pure hypercholesterolemia, unspecified; E55.9 Vitamin D deficiency, unspecified; M25.532 Pain in left wrist; R20.2 Paresthesia of skin; R05.8 Other specified cough; T46.4X5A Adverse effect of angiotensin-converting-enzyme inhibitors, initial encounter

== ENCOUNTER → 2024-04-30 12:17 | Outpatient (BNVA) | payer MEDICARE, SELFPAY | PROVIDERS: PCP Nurse Practitioner Family; Visit Provider Nurse Practitioner Family | DX: E03.9 Hypothyroidism, unspecified (principal); E78.00 Pure hypercholesterolemia, unspecified; E55.9 Vitamin D deficiency, unspecified; I10 Essential (primary) hypertension; M25.532 Pain in left wrist; R20.2 Paresthesia of skin; R05.8 Other specified cough; T46.4X5A Adverse effect of angiotensin-converting-enzyme inhibitors, initial encounter | CPT/HCPCS: 96127; 99212 ==

== ENCOUNTER 2024-05-05 15:04 | Outpatient (REF) | payer MEDICARE, SELFPAY ==
--- NOTE | ~2024-05-05 | MM_ITS ---
EXAMINATION: MM SCREENING DIGITAL BREAST TOMOSYNTHESIS, BILATERAL CLINICAL INFORMATION: Screening. Asymptomatic. COMPARISON: Mammography: Comparison is made with available priors TECHNIQUE: Digital breast mammography with tomosynthesis is performed in both the craniocaudal and mediolateral oblique views along with computer-aided detection (CAD). FINDINGS: The breasts are heterogeneously dense, which may obscure small masses (ACR BI-RADS breast composition Category c). Pacemaker overlies and obscures the superior posterior left breast on MLO view. There are no significant masses, abnormal calcifications, or other abnormalities. MM/MM tomosynthesis screening BI IMPRESSION: No mammographic evidence of malignancy. ASSESSMENT: BI-RADS BI-RADS 2 - Benign Findings RECOMMENDATION: Routine annual mammography screening. 1 year F/U This examination should not preclude the clinical evaluation of a suspicious palpable abnormality. This patient's information was entered into a reminder system with a target due date for their next mammogram. Electronically signed by: Fide Handy DO 05/14/2024 01:40 PM KAREN JORDAN
== END 2024-05-05 15:05 | disposition home or self-care (01) ==
LOC: HO.MAMMO 15:04
PROVIDERS: PCP Nurse Practitioner Family; Visit Provider Nurse Practitioner Family
DX: Z12.31 Encounter for screening mammogram for malignant neoplasm of breast (principal)
CPT/HCPCS: 77063; 77067

== ENCOUNTER → 2024-05-05 15:30 | Outpatient (BNV) | payer MEDICARE, SELFPAY | PROVIDERS: PCP Nurse Practitioner Family; Visit Provider Internal Medicine | DX: Z12.31 Encounter for screening mammogram for malignant neoplasm of breast (principal) | CPT/HCPCS: 77063; 77067 ==

== ENCOUNTER 2024-10-25 08:52 | Outpatient (REF) | payer MEDICARE, SELFPAY ==
--- OUTSIDE RECORDS SUMMARY | 2024-10-25 09:31 | XMS_ITS | Clinical Summary ---
Author Organization [facility] Address [address] [place] [address] Care Team Providers Care Human Resources Trainee Name Role Phone Unavailable Primary Care Provider Unavailabl e Social History Tobacco Use Types Packs/Day Years Used Date Smoking Tobacco: Never Smokeless Tobacco: Never Alcohol Use Standard Drinks/Week Comments Yes 0 (1 standard drink = 0.6 oz pur e alcohol) Comments Unknown Sex and Gender Information Value Date Recorded Sex Assigned at Not on file Legal Sex Female 8:15 PM EST Gender Identity Not on file Sexual Orientation Not on file Obstetrics History Plan of Treatment Health Maintenance Due Date Last Done Comments DTaP,Tdap,and Td Vaccines (1 - Tdap) 12/05/1962 Pneumococcal Vaccine: 50+ Ye ars (1 of 1 - PCV) 12/05/1993 Zoster Vaccines (1 of 2) 12/05/1993 RSV Immunization Adult Patie nts (1 - 1-dose 75+ series) 12/05/2018 Depression Screening 07/24/2023 Falls Risk Assessment 07/24/2023 Osteoporosis Screening (Bone Density Screening) 07/24/2023 Social Influencers of Health Screening 07/24/2023 COVID-19 Vaccine ( - 2023-2 5 season) 2024 Influenza Vaccine (Season Ended) 2025 HIB Vaccines Aged Out No longer eligi ble based on patient's age to complete this topic HPV Vaccines Aged Out No longer eligi ble based on patient's age to complete this topic Hepatitis A Vaccines Aged Out No long er eligible based on patient's age to complete this topic Hepatitis B Vaccines Aged Out No long er eligible based on patient's age to complete this topic IPV Vaccines Aged Out No longer eligi ble based on patient's age to complete this topic MMR Vaccines Aged Out No longer eligi ble based on patient's age to complete this topic Meningococcal ACWY Vaccine Aged Out N o longer eligible based on patient's age to complete this topic Meningococcal B Vaccine Aged Out No l onger eligible based on patient's age to complete this topic RSV Immunization Patients Un nuris 20 months Aged Out No longer eligible b ased on patient's age to complete this topic Varicella Vaccines Aged Out No longer eligible based on patient's age to complete this topic
--- OUTSIDE RECORDS SUMMARY | 2024-10-25 09:31 | XMS_ITS | Clinical Summary ---
Author Organization [facility] Address [address] [place] [address] Care Team Providers Care Building Manager Name Role Phone Unavailable Primary Care Provider Unavailabl e Allergies No known active allergies Medications No known medications Active Problems No known active problems Social History Tobacco Use Types Packs/Day Years Used Date Smoking Tobacco: Never Smokeless Tobacco: Never Tobacco Cessation:Counseling Given: Not Answered Alcohol Use Standard Drinks/Week Comments Yes 0 (1 standard drink = 0.6 oz pur e alcohol) social Sex and Gender Information Value Date Recorded Sex Assigned at Female 11/12/2022 1:22 PM EDT Gender Identity Not on file Sexual Orientation Not on file Job Start Date Occupation Industry Not on file Not on file Not on file Last Filed Vital Signs Vital Sign Reading Time Taken Comments Blood Pressure 157/69 11/12/2022 1:07 PM EDT Pulse 74 11/12/2022 1:07 PM EDT Temperature 36.7 ??C (98.1 ??F) 11/12/2022 1:07 PM ED T Respiratory Rate 18 11/12/2022 1:07 PM EDT Oxygen Saturation 97% 11/12/2022 1:07 PM EDT Inhaled Oxygen Concentration - - Weight 77.1 kg (170 lb) 11/12/2022 1:07 PM EDT Height 162.6 cm (5' 4 ) 11/12/2022 1:07 PM EDT Body Mass Index 29.18 11/12/2022 1:07 PM EDT Plan of Treatment Health Maintenance Due Date Last Done Comments COVID-19 Vaccine (#1) 06/06/1946 Depression Screening 1955 Preventative Health Evaluation 12/05/1961 Shingrix-Zoster Vaccine (1 of 2) 12/05/1993 Fall Risk Assessment 12/05/2008 Osteoporosis Screening (DEXA Scan) 12/05/2008 Pneumococcal Vaccine (1 of 1 - PCV) 12/05/2008 RSV Adult > 60+ Yrs or Pregn ant (1 - 1-dose 75+ series) 12/05/2018 Influenza Vaccine (#1) 2024 05/14/2022 DTap / Tdap / Td (2 - Td or Tdap) 04/09/2032 022 Hepatitis B Vaccines Aged Out No long er eligible based on patient's age to complete this topic RSV Ped < 20 months Aged Out No longe r eligible based on patient's age to complete this topic
--- OUTSIDE RECORDS SUMMARY | 2024-10-25 09:31 | XMS_ITS ---
Author Name [facility] Organization Unknown Care Team Organization Name Specialty Phone Email Start Date End Da te [employer] 09/02/2023 11/30/2023 [facility] CCDA [id number] [facility] ADT 02/08/20 23
[2024-10-25 11:32] LABS: Cholesterol 158 mg/dL (<200); HDL Cholesterol 57 mg/dL (>40); LDL Cholesterol Calculated 89 mg/dL (<100); Triglycerides 63 mg/dL (<150)
[2024-10-25 11:47] LABS: TSH reflex Free T4 4.08 uIU/mL (0.32-4.0); Vitamin D 25-OH Total 54.7 ng/mL (>30)
[2024-10-25 12:42] LABS: Free T4 (Free Thyroxine) 1.13 ng/dL (0.71-1.85)
== END 2024-10-25 08:53 | disposition home or self-care (01) ==
LOC: HO.WFDLDS 08:52
PROVIDERS: Visit Provider Nurse Practitioner Family
DX: E78.00 Pure hypercholesterolemia, unspecified (principal); E03.9 Hypothyroidism, unspecified; I10 Essential (primary) hypertension; E55.9 Vitamin D deficiency, unspecified
CPT/HCPCS: 36415; 80061; 82306; 84439; 84443

== ENCOUNTER 2024-11-01 11:45 | Outpatient (AMB) | payer MEDICARE, SELFPAY ==
--- NOTE | 2024-11-01 11:52 | AM.OFFVISMDC ---
Intake Vital Signs 11/01/24 11:59 11/01/24 12:54 11/01/24 12:56 Height 5 ft 4 in Weight 174 lb 6 oz BMI 29.9 BP 144/80 H 163/82 H 138/70 Blood Pressure Location Lt brachial Lt brachial Lt brachial Position Sitting Sitting Respiration 13 Pulse 65 Pulse Source Pulse Oximeter Temp 97.2 F Temp Source Oral Pulse Oximetry (%) 98 Oxygen Delivery Method Room Air Intake Visit Reasons: 6 mo 30 min awv labs 1 week before Intake Note: AWV and review labs. Patient c/o high blood pressure. Pleater Hand Required: No Allergies No Known Allergies Allergy (Verified 11/01/24 12:19) Medication List - Last Reconciled 11/01/24 by Latonia Macedo, [facility]- aspirin (Martina Chewable Low Dose Aspirin) 81 mg PO DAILY cholecalciferol (vitamin D3) 25 mcg PO DAILY ezetimibe (Zetia) 10 mg PO DAILY ibuprofen 400 mg PO Q8H PRN 1 month levothyroxine 50 mcg PO DAILY losartan 25 mg PO DAILY Do you need a note to return to daycare/school/sports/work: No HPI HPI Comments History of Present Illness Details Here today for AWV. The Medicare Annual Wellness Visit (AWV) is a yearly appointment with a health professional to identify health risks and help reduce them and to create or update a personalized prevention plan. During a Medicare AWV, health professionals should also review any current opioid prescriptions, detect any cognitive impairment, and establish or update medical and family history. Michael 78-year-old female with vitamin-D deficiency, obesity, hyperlipidemia, hypothyroidism, hypertension, osteoarthritis, sick sinus syndrome/AF status post dual-chamber pacemaker, multiple falls, former smoker, cataracts bilat Status post pacemaker placed in 2016, right shoulder replacement Social: Lives in an in-law apartment with her son; Emmett 52 years recently FHx: Y Health Maintenance: See scanned preventative medicine assessment with personalized health plan and screening schedule. Mammo 04/2024 Colon: cologaurd in the past, declined future fu DEXA declined PAP aged out Vaccines: Tdap 2024, Shingles UTD, to get Pneumococcal shots at Pharmacy AAA screen: n/a EKG: done today and faxed to Cards at [facility] Cards annual visits last visit 05/2024 [facility] Visual Acuity: glasses, last eye exam 09/2024 Hearing Screening: hearing aides ACP: HCP at home; MOLST given today Dietary/Nutrition/Exercise Edu provided: Y Results 10/27/24 TSH 4.08 otherwise labs wnl During the course of the visit the patient was educated and counseled about appropriate screening and preventative services. Patient instructions were provided to the patient in written or electronic format. I have reviewed and verified the above information. History of Present Illness - The patient is an 78-year-old female presenting for an annual Medicare wellness visit & routine fu of chronic conditions - The patient has noted increased blood pressure readings since July, with noted changes in medication from Lisinopril to Losartan. Current management involves Losartan 25 mg daily, with noted high readings persisting. Home log reviewed. - She has a history of essential hypertension which has been fluctuating despite management. - She has been taking vitamin D supplements, initially at 2000 IU; her levels are above the normal range, requiring adjustment. - Past issues with elevated vitamin B12 have led to cessation of supplementation for the time being. Hypothyoid - on levothyroxine, not taking alone. Taking w/ other meds in the AM. TSH a little over 4. Denies sx. HLD on Zetia, lipid profile at goal SSS s/p pacer on ASA followed by cards, denies cardiac complaints Social History - Lives with her son in an in-law apartment and has a close relationship with family. 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 - Previously a smoker but currently not smoking. - Manages daily activities independently and actively drives. - Travel plans include a trip from November 29 to December 08. - Engages in regular social activities, maintaining functional independence. Health Maintenance - Up-to-date mammogram performed in April 2023 - Up-to-date on Tdap vaccination - Pneumococcal vaccinations recommended but unclear from patient's records - Shingles vaccine completed - Colon cancer screening with Cologuard after a prior negative colonoscopy Review of Systems - Cardiac: Reports increased blood pressure. Reports no palpitations besides prior AFib. - Endocrine: Denies symptoms of hypothyroidism. - Musculoskeletal: Denies joint pain beyond osteoarthritis. - Neurological: Denies dizziness upon standing when careful. - Constitutional: Denies feeling down, depressed, or anxious. - Gastrointestinal: Denies current bowel movement problems. - Ophthalmologic: Reports recent mild change in vision; identified cataracts development. Physical Exam General: Well developed, well nourished, in no acute distress. Appears stated age. Head: Normocephalic, atraumatic. Eyes: Pupils are equal, round and reactive to light and accommodation. Conjunctivae are clear. Ears: TMs clear AU, EACS WNL. Patient uses hearing aids. Nose: Patent, without discharge. Neck: Supple, no adenopathy or thyromegaly. Breast: Edu on SBE Lungs: Clear to auscultation bilaterally. No rales, rhonchi or wheeze noted. Good air flow in all mcgarry. Heart: Regular rate and rhythm. No murmurs, click, rubs or gallops are noted. Abdomen: Bowel sounds present in all quadrants. The abdomen is soft, nontender, with no masses or organomegaly noted. No hernias are noted. : Deferred. Reviewed recommendations for routine BUS DRIVER Pulses: Peripheral pulses are equal and palpable bilaterally. Extremities: No clubbing, cyanosis nor edema is noted. Neurologic: Gait and station normal. Cranial Nerves 2-12 intact. Motor strength grossly symmetrical and intact. No sensory loss. Balance normal. Skin: No rashes, ulcers, or lesions noted. Turgor is good. Skin color is good. Hair and nails are without abnormalities. Psych: Normal eye contact, affect and mood appropriate, and normal interactions. Patient is alert and appropriate to context. No feelings of depression or anxiety reported. Cognitive screening normal. Results - Labs: Vitamin D level at 54.7 (higher than normal), B12 was within normal limits in past. - Tests: EKG was normal for the patient. - Diagnostics: Blood pressure exhibited variability on home monitoring. Discussion Notes During the visit, we discussed her increased blood pressure with the possibility of increasing her current Losartan dose to better manage her hypertension, suggesting that she take 25 mg twice daily. We reviewed her vitamin D supplementation levels and decided to reduce the intake to 400 IU daily due to elevated serum levels. I advised her not to resume vitamin B12 supplements at this time since previous levels were high and will check levels again later. Recommendations were made regarding pneumococcal vaccinations. We also completed the cognitive assessment successfully. Follow-up appointments were discussed, including an upcoming check of her blood pressure after adjusting her medication. Assessment and Plan 1. Essential Hypertension We will adjust the Losartan dosage to better manage blood pressure, increasing to 25 mg twice daily. Home monitoring will be important to gauge effectiveness, with a nurse visit to ensure machine accuracy. 2. Vitamin D Deficiency Patients should decrease vitamin D intake to 400 IU daily given elevated levels. We will reassess during her next appointment. 3. Hypothyroidism Advise taking Levothyroxine separately and consider night dosing to avoid interaction with other medications. 4. Preventative Care Recommend pneumococcal vaccination. Positive cognitive screening. Consider a bone density test if osteoporosis treatment is pursued. Patient Instructions - Increase from Losartan 25 mg in the morning to 25 mg BID . - Change vitamin D3 supplement to 400 IU daily. - Keep Levothyroxine taken on an empty stomach separate from others. - Monitor blood pressure at home; ensure correct machine use. - Get pneumococcal vaccination at local pharmacy. - Schedule a follow-up for blood pressure check with the nurse before your trip. RTO 6 mo routine fu, labs 1 week before sooner PRN Consent Patient was informed and verbally consented to the use of an ambient scribe for clinic note documentation during this visit. Extra time spent on this visit was 30 minutes. [facility] [place] Medical History (Updated 11/01/24 @ 12:51 by Latonia Macedo, [facility]) Arthritis of right shoulder region Fatigue Left anterior shoulder pain Muscle strain of right shoulder Shoulder pain, bilateral Surgical History History of pacemaker History of right shoulder replacement Family History Father Advanced cardiac disease Emphysema of lung Mother No problems noted. Social History (Updated 04/16/24 @ 12:23 by Aaliyah Franz MA) Household Members: None Both parents involved: No Caregiver staying overnight: No Housing: House Are you a primary skin care consultant to a significant other at home: No Do you presently have visiting nurse or other home services: No 75 years or older and lives alone: No Alcohol intake: never Patient Tobacco Use Status: Never used Tobacco e-Cigarette/Vaping Use: Never Used service: No Current occupational status: retired Cognitive needs: No Hearing needs: Yes (hearing aide) Vision needs: No Questionnaire Medicare Wellness Checkup What is your age?: 80 or older What gender do you identify with?: female During the past 4 weeks, how much have you been bothered by emotional problems such as feeling anxious, depressed, irritable, sad or downhearted, and blue?: not at all During the past 4 weeks, has your physical & emotional health limited your social activities with family, friends, neighbors, or groups?: not at all During the past 4 weeks, how much bodily pain have you generally had?: no pain During the past 4 weeks, was someone available to help you if you needed & wanted help?: yes, as much as I wanted During the past 4 weeks, what was the hardest physical activity you could do for at least 2 minutes?: moderate Can you get to places out of walking distance without help? (For eg., can you travel alone on buses, taxis or drive your car?): Yes Can you go shopping for groceries or clothes without someone's help?: Yes Can you prepare your own meals?: Yes Can you do your housework without help?: Yes Because of any health problems, do you need the help of another person with your personal care needs such as eating, bathing, dressing or getting around the house?: No Can you handle your own money without help?: Yes During the past 4 weeks, how would you rate your health in general?: good During the past 4 weeks how have things been going for you?: pretty well Are you having difficulties driving your car?: no Do you always fasten your seat belt when you are in a car?: yes, usually During past 4 weeks, have you been bothered by the following: never: Falling or dizzy when standing up, Sexual problems?, Trouble eating well?, Teeth or denture problems? and Problems using the telephone? Have you fallen 2 or more times in the past year?: No Are you afraid of falling?: Yes Are you a smoker?: no During the past 4 weeks, how many drinks of wine, beer, or other alcoholic beverages did you have?: no alcohol at all Do you exercise for about 20 minutes 3 or more times a week?: yes, some of the time Have you been given information to help with the following?: no: Hazards in your house that might hurt you? and no: Keeping track of your medications? How often do you have trouble taking medicines the way you have been told to take them?: I always take medicine as prescribed How confident are you that you can control & manage most of your health problems?: very confident What is your race?: White Activity of Daily Living Bathing - sponge bath, tub bath or shower: receives no assistance (gets in/out by self, if usual bathing means Dressing - getting clothes from closets & drawers, including inner/outer garments & fasteners.: gets clothes & gets completely dressed without help Toileting - going to the 'toilet room' for urine/bowel elimination & cleaning self/arranging clothes: goes to toilet room, cleans self, arranges clothes without help Transfer: moves in & out of bed and chair without help (may use support object) Continence: controls urination/bowel movements completely by self Feeding: feeds self without help Total Score: 0 Information obtained from: patient Using telephone: independent Traveling: independent Shopping: independent Preparing meals: independent Housework: independent Taking medicine: independent Managing money: independent PHQ-9 Over the last 2 weeks, how often have you been bothered by any of the following problems? 1. Little interest or pleasure in doing things: not at all 2. Feeling down, depressed, or hopeless: not at all 3. Trouble falling or staying asleep, or sleeping too much: not at all 4. Feeling tired or having little energy: not at all 5. Poor appetite or overeating: not at all 6. Feeling bad about yourself - or that you are a failure or have let yourself or your family down: not at all 7. Trouble concentrating on things, such as reading the newspaper or watching television: not at all 8. Moving or speaking so slowly that other people could have noticed. Or the opposite - being so fidgety or restless that you have been moving around a lot more than usual: not at all 9. Thoughts that you would be better off or of hurting yourself in some way: not at all Total score: 0 Depression Screening Interpretation: Negative Depression Screening Done: Yes 93630 - PHQ-9 Billing: Yes Source: Developed by Drs. Artem Bustamante, Rhona Yadav, Todd Cage and colleagues, with an educational coty from [employer]. Physical Exam Vital Signs: Last Vital Signs Temp 97.2 F 11/01/24 11:59 Pulse 65 11/01/24 11:59 Resp 13 11/01/24 11:59 BP 138/70 11/01/24 12:56 Pulse Ox 98 11/01/24 11:59 Oxygen Delivery Method Room Air 11/01/24 11:59 BMI result Body Mass Index 29.9 Office Procedures EKG 06677-[id number], Complete Vision Screening Right Eye: 20/25 Left Eye: 20/25 Bilateral: 20/20 Color: Pass Corrected: Pass (wearing glasses) 90108 - Vision Screening Results AMB Hemoglobin A1c AMB Hemoglobin A1c 5.6 % Last Edit by Aaliyah Zhou MA on 11/01/24 12:18 Immunizations Boostrix Tdap 2.5 Lf unit-8 mcg-5 Lf/0.5 mL intramuscular syringe Performing Provider: ALEJANDRO Ward Performing Location: [facility] Administered by: Cherry Gray RN on 11/01/24 12:26 Dose Route Admin Location Dispensed Lot Number Expiration Date [facility] Patient Attendant 0.5 mL IM Left Deltoid 0.5 mL [id number] 07/09/26 [id number] [employer] VIS Given Date VIS Provided VIS Publication Date 11/01/24 Single Vaccine 21 Eligibility Eligibility Date Funding Source Not [facility] Eligible 11/01/24 Private Results Reviewed Results Reviewed: Laboratory Last Values Hgb A1c (Clinic) 5.6 % (4.0-6.0) 11/01/24 11:48 Assessment & Plan Assessment & Plan (1) Encounter for subsequent annual wellness visit (AWV) in Medicare patient: Onset Date: ~10/2024 Code(s): Z00.00 - Encounter for general adult medical examination without abnormal findings (2) High cholesterol: Code(s): E78.00 - Pure hypercholesterolemia, unspecified (3) Hypertension, essential: Code(s): I10 - Essential (primary) hypertension (4) Hypothyroidism (acquired): Code(s): E03.9 - Hypothyroidism, unspecified (5) Obesity (BMI 30.0-34.9): Code(s): E66.9 - Obesity, unspecified (6) Vitamin D deficiency: Code(s): E55.9 - Vitamin D deficiency, unspecified (7) ACP (advance care planning): Code(s): Z71.89 - Other specified counseling Plan . Orders: Orders Lipid Panel 6 Months E03.9 - Hypothyroidism, unspecified, E55.9 - Vitamin D deficiency, unspecified, E78.00 - Pure hypercholesterolemia, unspecified, I10 - Essential (primary) hypertension TSH reflex Free T4 6 Months E03.9 - Hypothyroidism, unspecified, E55.9 - Vitamin D deficiency, unspecified, E78.00 - Pure hypercholesterolemia, unspecified, I10 - Essential (primary) hypertension Vitamin B12 and Folate 6 Months E03.9 - Hypothyroidism, unspecified, E55.9 - Vitamin D deficiency, unspecified, E78.00 - Pure hypercholesterolemia, unspecified, I10 - Essential (primary) hypertension Vitamin D 25-OH Total 6 Months E03.9 - Hypothyroidism, unspecified, E55.9 - Vitamin D deficiency, unspecified, E78.00 - Pure hypercholesterolemia, unspecified, I10 - Essential (primary) hypertension AMB Hemoglobin A1c Today Z13.9 - Encounter for screening, unspecified TDaP Immunization Today Z23 - Encounter for immunization Comprehensive Met. Panel 6 Months E03.9 - Hypothyroidism, unspecified, E55.9 - Vitamin D deficiency, unspecified, E78.00 - Pure hypercholesterolemia, unspecified, I10 - Essential (primary) hypertension Medications: New losartan 25 mg PO BID 180 tabs 0RF cholecalciferol (vitamin D3) 10 mcg PO DAILY 90 caps 0RF Discontinued losartan Discontinued Reason: Doctor's Order 25 mg PO DAILY 90 tabs 0RF Patient Instructions: Health screenings for women You should visit your health care provider from time to time, even if you are healthy. The purpose of these visits is to: Screen for medical issues Assess your risk for future medical problems Encourage a healthy lifestyle Update vaccinations and other preventive care services Help you get to know your provider in case of an illness Information Even if you feel fine, you should still see your provider for regular checkups. These visits can help you avoid problems in the future. For example, the only way to find out if you have high blood pressure is to have it checked regularly. High blood sugar and high cholesterol levels also may not have any symptoms in the early stages. A simple blood test can check for these conditions. There are specific times when you should see your provider or receive specific health screenings. The [place] Preventive Services Task Force publishes a list of recommended screenings. Below are screening guidelines for women ages 18 to 39. BLOOD PRESSURE SCREENING Your blood pressure should be checked at least once every 3 to 5 years if: Your blood pressure is in the normal range (top number less than 120 mm Hg and bottom number less than 80 mm Hg) You don't have risk factors for high blood pressure Ask your provider if you need your blood pressure checked more often if: The top number is 120 to 129 mm Hg or the bottom number is 70 to 79 mm Hg You have diabetes, heart disease, kidney problems, are overweight, or have certain other health conditions You have a first-degree relative with high blood pressure You are Black You had high blood pressure during a If the top number is 130 mm Hg or greater or the bottom number is 80 mm Hg or greater, this is considered stage 1 hypertension. Schedule an appointment with your provider to learn how you can reduce your blood pressure. Watch for blood pressure screenings in your area. Ask your provider if you can stop in to have your blood pressure checked. BREAST CANCER SCREENING Experts do not agree about the benefits of breast self-exams in finding breast cancer or saving lives. Talk to your provider about what is best for you. A screening mammogram is not recommended for most women under age 40. Your provider may discuss and recommend mammograms, MRI scans, or ultrasounds if you have an increased risk for breast cancer, such as: A mother or sister who had breast cancer at a young age (most often starting screening earlier than the age the close relative was diagnosed) You carry a high-risk genetic marker CERVICAL CANCER SCREENING Cervical cancer screening should start at age 21 years unless your provider advises otherwise. After the first test: Women ages 21 through 29 should have a Pap test every 3 years. Exoprts do not agree on whether HPV testing is recommended for this age group. Women ages 30 through 65 should be screened with either a Pap test every 3 years or the HPV test every 5 years or both tests every 5 years (called cotesting ). Women who have been treated for precancer (cervical dysplasia) should continue to have Pap tests for 20 years after treatment or until age 65, whichever is longer. If you have had your uterus and cervix removed (total hysterectomy), and you have not been diagnosed with cervical cancer or precancer (high grade cervical neoplasia), you do not need cervical cancer screening. CHOLESTEROL SCREENING Cholesterol screening should begin at: Age 45 for women with no known risk factors for coronary heart disease Age 20 for women with known risk factors for coronary heart disease Repeat cholesterol screening should take place: Every 5 years for women with normal cholesterol levels More often if changes occur in lifestyle (including weight gain and diet) More often if you have diabetes, heart disease, kidney problems, or certain other conditions DIABETES SCREENING You should be screened for diabetes starting at age 35 and then repeated every 3 years if you have no risk factors for diabetes. Screening may need to start earlier and be repeated more often if you have other risk factors for diabetes, such as: You have a first degree relative with diabetes. You are overweight or have obesity. You have high blood pressure, prediabetes, or a history of heart disease. Screening for diabetes should be done if you are planning to become and you are overweight and have other risk factors such as high blood pressure. DENTAL EXAM Go to the dentist once or twice every year for an exam and cleaning. Your dentist will evaluate if you need more frequent visits. EYE EXAM Have an eye exam every 5 to 10 years before age 40. If you have vision problems, have an eye exam every 2 years or more often if recommended by your provider. You should have an eye exam that includes an examination of your retina (back of your eye) at least every year if you have diabetes. IMMUNIZATIONS Commonly needed vaccines include: Flu shot: get one every year. COVID-19 vaccine: ask your provider what is best for you. Tetanus-diphtheria and acellular pertussis (Tdap) vaccine: have one at or after age 19 as one of your tetanus-diphtheria vaccines if you did not receive it as an adolescent. Tetanus-diphtheria: have a booster (or Tdap) every 10 years. Varicella vaccine: receive 2 doses if you never had chickenpox or the varicella vaccine. Hepatitis B vaccine: receive 2, 3, or 4 doses, depending on your exact circumstances. Measles, mumps, and rubella (MMR) vaccine: receive 1 to 2 doses if you are not already immune to MMR. Your provider can tell you if you are immune. Ask your provider about the human papillomavirus (HPV) vaccine if: You have not received the HPV vaccine in the past You have not completed the full vaccine series (you should catch up on this shot) Ask your provider if you should receive other immunizations if you have certain health problems that increase your risk for some diseases such as pneumonia. INFECTIOUS DISEASE SCREENING Women who are sexually active should be screened for chlamydia and gonorrhea up until age 25. Women 25 years and older should be screened for chlamydia and gonorrhea if at high risk. Screening for hepatitis C: All adults ages 18 to 79 should get a one-time test for hepatitis C. people should be screened at every . Screening for human immunodeficiency virus (HIV): All people ages 15 to 65 should get a one-time test for HIV. Depending on your lifestyle and medical history, you may also need to be screened for infections such as syphilis and HIV, as well as other infections. PHYSICAL EXAM All adults should visit their provider from time to time, even if they are healthy. The purpose of these visits is to: Screen for disease Assess your risk of future medical problems Encourage a healthy lifestyle Update your vaccinations and other preventive care services Maintain a relationship with a provider in case of an illness Your height, weight, and BMI should be checked at every exam. During your exam, your provider may ask you about: Depression and anxiety Diet and exercise Alcohol and tobacco use Safety issues, such as using seat belts, smoke detectors, and intimate partner violence Your medicines and risk for interactions SKIN SELF-EXAM Your provider may check your skin for signs of skin cancer, especially if you're at high risk, such as if you: Have had skin cancer before Have close relatives with skin cancer Have a weakened immune system OTHER SCREENING Talk with your provider about colon cancer screening if you have a strong family history of colon cancer or polyps, or if you have had inflammatory bowel disease or polyps yourself. Routine bone density screening of women under 40 is not recommended. Quality Reporting (2019) Adult ([facility] 138/08/21/68) Smoking risk assessment performed?: Yes Patient Tobacco Use Status: Never used Tobacco Depression screening performed: Yes Screen Results: Yes Negative screen Systolic BP not done?: No Diastolic BP not done?: No BMI screening not done: No BMI High - Follow Up: Yes High-plan Sexual Activity Screening ([facility] 153) Sexually active?: No Immunizations ([facility] 147, 117) Annual Influenza Vaccine: Yes Measles Antibody Test: No Mumps Antibody Test: No Rubella Antibody Test: No Varicella Antibody Test: No Anti Hepatitis A IgG Antigen test: No Anti Hepatitis B Virus Surface Ab test: No Fall Risk Screening ([facility] 139) Last assessed Fall Risk: 11/01/24 Fall risk assessment: No Falls in past year Dementia Assessment ([facility] 149) Cognitive assessment recorded: Yes Assessment of cognition with standardized tool: Yes (0/28 6 cit ) Depression/Bipolar (159/160/161/177) PHQ-9: Total score: 0 Ophthalmol:Cataracts Visual Acuity (133) Visual acuity exam performed: Yes (yes see results) Coding Level of Care Code Medicare Subsequent (G0439) Est Pt Level 4 (48279) Diagnoses Encounter for subsequent annual wellness visit (AWV) in Medicare patient Z00.00 High cholesterol E78.00 Hypertension, essential I10 Hypothyroidism (acquired) E03.9 Obesity (BMI 30.0-34.9) E66.9 Vitamin D deficiency E55.9 ACP (advance care planning) Z71.89 CPT Codes EKG - CPT: 05874-Tqeondjhnfitvtiil, Complete ([id number]) Vision Screening - Vision Screenin - Vision Screening ([id number]) Additional Codes PHQ-9 - 67972 - PHQ-9 Billing: Yes ([id number]) Advance Care Planning Advance Care Planning discussion: Exists, not on file Date of discussion: 11/01/24 Who was present: self Forms completed: Health Care Proxy, MOLST and Living will Actual minutes spent: 5
[2024-11-01 11:59] VITALS: BP 144/80; PULSE 65; RESP 13; TEMP 36.2; O2SAT 98; BMI 29.9
[2024-11-01 12:54] VITALS: BP 163/82
[2024-11-01 12:56] VITALS: BP 138/70
--- OUTSIDE RECORDS SUMMARY | 2024-11-01 13:32 | XMS_ITS | Clinical Summary ---
Author Organization [facility] Address [address] [place] [address] Care Team Providers Care Java Integration Developer Name Role Phone Unavailable Primary Care Provider [...]
--- OUTSIDE RECORDS SUMMARY | 2024-11-01 13:32 | XMS_ITS | Clinical Summary ---
Author Organization [facility] ity Address [address] [place] [address] Care Team Providers Care Crester Name Role Phone Unavailable Primary Care Provider [...]
== END 2024-11-01 13:04 | disposition home or self-care (01) ==
LOC: HO.HMCFM 11:46
PROVIDERS: PCP Nurse Practitioner Family; Visit Provider Nurse Practitioner Family
DX: Z00.00 Encounter for general adult medical examination without abnormal findings (principal); E78.00 Pure hypercholesterolemia, unspecified; I10 Essential (primary) hypertension; E66.9 Obesity, unspecified; Z68.29 Body mass index [BMI] 29.0-29.9, adult; E03.9 Hypothyroidism, unspecified; E55.9 Vitamin D deficiency, unspecified; Z71.89 Other specified counseling; Z23 Encounter for immunization

== ENCOUNTER → 2024-11-01 11:45 | Outpatient (BNVA) | payer MEDICARE, SELFPAY | PROVIDERS: PCP Nurse Practitioner Family; Visit Provider Nurse Practitioner Family | DX: Z00.00 Encounter for general adult medical examination without abnormal findings (principal); Z23 Encounter for immunization; E78.00 Pure hypercholesterolemia, unspecified; I10 Essential (primary) hypertension; E03.9 Hypothyroidism, unspecified; E66.9 Obesity, unspecified; Z68.29 Body mass index [BMI] 29.0-29.9, adult; E55.9 Vitamin D deficiency, unspecified; Z71.89 Other specified counseling; Z13.1 Encounter for screening for diabetes mellitus | CPT/HCPCS: 83036; 90471; 90715; 96127; 99212 ==

== ENCOUNTER 2025-05-02 08:01 | Outpatient (REF) | payer MEDICARE, SELFPAY ==
--- OUTSIDE RECORDS SUMMARY | 2025-05-02 08:05 | XMS_ITS | Clinical Summary ---
Author Organization [facility] Address [address] [place] [address] Phone Care Team Providers Care Foundation Relations Manager Name Role Phone Arti Rowley NP Primary Care Provider Social History Tobacco Use Types Packs/Day Years Used Date Smoking Tobacco: Never Assessed Education Answer Date Recorded Are you interested in more education? Not on raul e 10/24/2022 Are you concerned about learning? Not on file 10/24/2022 No 10/24/2022 No 10/24/2022 Digital Access Answer Date Recorded No 11/25/2022 No 11/25/2022 No 11/25/2022 Reliable internet access at home? Not on file 11/25/2022 Device with a working camera? Not on file Comments Unknown Sex and Gender Information Value Date Recorded Sex Assigned at Not on file Legal Sex Female 7:47 PM EST Gender Identity Not on file Sexual Orientation Not on file Plan of Treatment Health Maintenance Due Date Last Done Comments Adult Td,Tdap Booster 1945 DEPRESSION SCREENING 1957 PNEUMOCOCCAL VACCINES (50+ years) (1 of 1 - PCV) 12/05/1993 OSTEOPOROSIS SCREENING INITIAL (ONE-TIME) 12/05/2008 RSV VACCINE (1 - 1-dose 75+ series) 12/05/2018 INFLUENZA VACCINE (#1) 2025 , 03/22/2020, 05/11/2019, Additional history exists COVID-19 VACCINE ( season) 2025 05/03/2021, 08/21/2020, 07/31/2020 ZOSTER VACCINES Completed 09/14/2021, 12/09/2020 HEPATITIS A VACCINES Aged Out No long er eligible based on patient's age to complete this topic HIB VACCINES Aged Out No longer eligi ble based on patient's age to complete this topic MENINGOCOCCAL VACCINES (ACWY) Aged Out No longer eligible based on patient's age to complete this topic MENINGOCOCCAL VACCINES (B) Aged Out N o longer eligible based on patient's age to complete this topic Medical Devices Not on file Insurance [facility] MEDICARE PART A & B O MEDICARE REPLACEMENT MEDICARE PART A & B MEDICARE REPLACEMENT MEDICARE PART A & B Member Subscriber Plan / Payer (Ef fective 2008-Present) Name:Fannie Camargo Member ID:[id number] Relation to Subscriber:Self Name:Fannie Camargo Subscriber ID:[id number] Payer ID:[id number] Group ID:Not on file Type:Medicare Address: [employer] [address] [facility] MEDICARE PART A & B [facility] RE[facility] MEDICARE PART A & B [facility] MEDICARE REPLACEMENT MEDICARE PART A & B [facility] MEDICARE REPLACEMENT MEDICARE PART A & B [facility] MEDICARE REPLACEMENT MEDICARE PART A & B [employer] P[employer] MEDICARE REPLACEMENT Care Teams Foundation Relations Manager Relationship Specialty Start Date End Date Arti Rowley NP PCP - General Family Medicine 03/16/21 Additional Source Comments The information contained in this document represents components of the legal health record. It is not the complete legal health record.[facility]
--- OUTSIDE RECORDS SUMMARY | 2025-05-02 08:05 | XMS_ITS | Clinical Summary ---
Author Organization [facility] Address [address] [place] [address] Care Team Providers Care Tool Grinding Technician Name Role Phone Unavailable Primary Care Provider [...] 74 11/12/2022 1:07 PM EDT Temperature 36.7 C (98.1 F) 11/12/2022 1:07 PM EDT Respiratory Rate 18 11/12/2022 1:07 PM EDT [...] 1-dose 75+ series) 12/05/2018 Influenza Vaccine (#1) 2025 05/14/2022 DTap / Tdap / Td (2 - Td or Tdap) 04/09/2032 022 Hepatitis B Vaccines Aged Out No long er eligible based on patient's age to complete this topic RSV Ped < 20 months Aged Out No longe r eligible based on patient's age to complete this topic
--- OUTSIDE RECORDS SUMMARY | 2025-05-02 08:06 | XMS_ITS | Clinical Summary ---
Author Organization [facility] ity Address [address] [place] [address] Care Team Providers Care Field Evidence Technician Name Role Phone Unavailable Primary Care [...] nts (1 - 1-dose 75+ series) 12/05/2018 Falls Risk Assessment 07/24/2023 Osteoporosis Screening (Bone Density Screening) 07/24/2023 Social Influencers of Health Screening 07/24/2023 Depression Screening 06/30/2024 COVID-19 Vaccine ( - 2023-2 5 season) 2025 Influenza Vaccine (#1) 2025 HIB Vaccines Aged Out No longer [...]
--- OUTSIDE RECORDS SUMMARY | 2025-05-02 08:06 | XMS_ITS ---
Author Name [facility] Organization Unknown Care Team Organization Name Specialty Phone Email Start Date End Da te [facility]25 [facility] ADT 12/11/19 25 [facility]25 12/01/2024 [facility] [employer] 09/02/2023 11/30/2023 [facility] ADT 02/08/20 23 12/10/2024 [facility]23 11/27/2024
[2025-05-02 10:48] LABS: Alanine Aminotransferase 17 U/L (0-31); Albumin Level 4.3 g/dL (3.5-5.0); Alkaline Phosphatase 86 U/L (39-117); Anion Gap 9 (12-20); Aspartate Amino Transferase 26 U/L (5-31); Blood Urea Nitrogen 17 mg/dL (9-16); Calcium 9.5 mg/dL (8.4-10.2); Carbon Dioxide 27 mmol/L (22-29); Chloride 111 mmol/L (96-108); Cholesterol 177 mg/dL (<200); Estimated Glomerular Filt Rate 51; HDL Cholesterol 52 mg/dL (>40); Potassium 4.4 mmol/L (3.3-5.1); Sodium 143 mmol/L (135-145); Total Protein 7.0 g/dL (6.5-8.0); Triglycerides 89 mg/dL (<150)
[2025-05-02 11:15] LABS: Folate 10.2 ng/mL (> or = 4.0); Vitamin B12 393 pg/mL (200-900)
[2025-05-02 11:47] LABS: Free T4 (Free Thyroxine) 0.96 ng/dL (0.71-1.85)
== END 2025-05-02 08:02 | disposition home or self-care (01) ==
LOC: HO.10HDL 08:01
PROVIDERS: Visit Provider Nurse Practitioner Family
DX: I10 Essential (primary) hypertension (principal); E55.9 Vitamin D deficiency, unspecified; E03.9 Hypothyroidism, unspecified; E78.00 Pure hypercholesterolemia, unspecified
CPT/HCPCS: 36415; 80053; 80061; 82306; 82607; 82746; 84439; 84443

== ENCOUNTER 2025-05-09 08:46 | Outpatient (REF) | payer MEDICARE, SELFPAY ==
--- OUTSIDE RECORDS SUMMARY | 2025-05-09 09:10 | XMS_ITS | Clinical Summary ---
Author Organization [facility] Address [address] [place] [address] Phone Care Team Providers Care Learning Analyst Name Role Phone Arti Rowley NP Primary [...] file [facility] MEDICARE PART A & B O MEDICARE REPLACEMENT MEDICARE PART A & B MEDICARE REPLACEMENT MEDICARE PART A & B Member Subscriber Plan / Payer (Ef fective 2008-Present) Name:Fannie Camargo Member ID:[id number] Relation to Subscriber:Self Name:Fannie Camargo Subscriber ID:[id number] Payer ID:[id number] Group ID:Not on file Type:Medicare Address: [employer] [address] [facility] & [facility] RE[facility] MEDICARE PART A & B [facility] MEDICARE REPLACEMENT MEDICARE PART A & B [facility] MEDICARE REPLACEMENT MEDICARE PART A & B [facility] MEDICARE REPLACEMENT MEDICARE PART A & B [employer] PPO MEDICARE REPLACEMENT Care Teams Learning Analyst Relationship Specialty Start Date End Date Arti Rowley NP PCP - General Family Medicine 03/16/21 Additional Source Comments The information contained in this document represents components of the legal health record. It is not the complete legal health record.[facility]
--- OUTSIDE RECORDS SUMMARY | 2025-05-09 09:10 | XMS_ITS | Clinical Summary ---
Author Organization [facility] Address [address] [place] [address] Care Team Providers Care Dish Up Person Name Role Phone Unavailable Primary Care Provider [...]
--- OUTSIDE RECORDS SUMMARY | 2025-05-09 09:10 | XMS_ITS | Clinical Summary ---
Author Organization [facility] ity Address [address] [place] [address] Care Team Providers Care Support Team Assoc Name Role Phone Unavailable Primary Care Provider [...]
== END 2025-05-09 08:47 | disposition home or self-care (01) ==
LOC: HO.MAMMO 08:46
PROVIDERS: PCP Nurse Practitioner Family; Visit Provider Nurse Practitioner Family
DX: Z12.31 Encounter for screening mammogram for malignant neoplasm of breast (principal)
CPT/HCPCS: 77063; 77067; 99212

== ENCOUNTER → 2025-05-09 09:00 | Outpatient (BNV) | payer MEDICARE, SELFPAY | PROVIDERS: PCP Nurse Practitioner Family; Visit Provider Internal Medicine | DX: Z12.31 Encounter for screening mammogram for malignant neoplasm of breast (principal) | CPT/HCPCS: 77063; 77067 ==

== ENCOUNTER 2025-05-09 12:12 | Outpatient (AMB) | payer MEDICARE, SELFPAY ==
--- NOTE | 2025-05-09 12:22 | A.OFFPC_ITS ---
Vital Signs 05/09/25 12:25 Height 5 ft 4.8 in Weight 178 lb BMI 29.8 BP 126/78 Blood Pressure Location Rt brachial Position Sitting Respiration 14 Pulse 67 Pulse Source Pulse Oximeter Temp 97.7 F Temp Source Oral Pulse Oximetry (%) 97 Oxygen Delivery Method Room Air Intake Visit Reasons: 6 mo 30 min routine fu Intake Note: Six month follow up Allergies No Known Allergies Allergy (Verified 05/09/25 12:39) Medication List - Last Reconciled 05/09/25 by VANDANA WardP- aspirin (Martina Chewable Low Dose Aspirin) 81 mg PO DAILY cholecalciferol (vitamin D3) 10 mcg PO DAILY ezetimibe (Zetia) 10 mg PO DAILY levothyroxine 50 mcg PO DAILY losartan 25 mg PO BID miscellaneous medical supply (Blood Pressure Cuff) As directed Tobacco use date assessed: 05/09/25 Fall risk assessment: No Falls in past year Last assessed Fall Risk: 05/09/25 Dental Screening Dental Screen Date: 05/09/25 Did you have a dental visit in the last 12 months?: No Did you have a dental problem in the last 6 months where you did not have access to dental care?: No Was dental information given to patient?: Patient declined (finding on in pt area.) HPI HPI Comments History of Present Illness Details Michael 79-year-old female with vitamin-D defici ency, obesity, hyperlipidemia, hypothyroidism, hypertension, osteoarthritis, sick sinus syndrome/AF status post dual-chamber pacemaker, multiple falls, former smoker, cataracts bilat Status post pacemaker placed in 2016, right shoulder replacement Social: Lives in an in-law apartment with her son; Emmett 52 years recently Health Maintenance Mammo 04/2024 Colon: cologaurd in the past, declined future fu DEXA declined PAP aged out Vaccines: Tdap 2024, Shingles UTD, to get Pneumococcal shots at Pharmacy, Flu 04/12/25 AAA screen: n/a EKG: done today and faxed to Cards at [facility] Cards annual visits last visit 05/2024 [facility] History of Present Illness The patient is an 79-year-old female presenting for a routine complex disease management visit. Hypothyroidism: - The patient manages her hypothyroidism with levothyroxine 50 mcg. - She reports feeling tired and sometime s dozing off, though she states it is not a major issue. - Her TSH level was around 4 six months ago and has now increased to > 5. - She takes her levothyroxine with all h er other pills in the morning. Hyperlipidemia: - The patient has a history of hyperlipi demia managed with Zetia. - She reports no missed doses of her med ication. - Recent lab results showed a slight inc rease in her cholesterol. Hypertension: - The patient's hypertension is treated with losartan 25 mg taken twice daily. - She reports her blood pressure has bee n good. - She admits to sometimes forgetting her evening dose and taking it later at night. Vitamin D Deficiency: - The patient takes a vitamin D suppleme nt for a history of deficiency. - Her dose was previously decreased alondra use her levels were too high. - Recent lab results indicate her vitami n D level is now within the normal range. Health Maintenance: - The patient received an influenza vacc ine in March. - She has not received a pneumonia vacci [facility]. - She declined the COVID-19 vaccine. Getting ready to go to [place] with her sister for 3 months leaves Jun 29 2025 Past Medical History - Hyperlipidemia, managed with Zetia. - Hypothyroidism, managed with levothyro xine. - Hypertension, managed with losartan 25 mg twice daily. - Vitamin D deficiency, managed with a s upplement. - Daily aspirin use. Review of Systems - Constitutional: Reports feeling tired and occasionally dozing off while sitting. - All other systems reviewed and are neg ative. Physical Exam General: Well developed, well nourished, in no acute distress. Appears stated age. Head: Normocephalic, atraumatic. Eyes: Pupils are equal, round and reactive to light and accommodation. C onjunctivae are clear. Vision grossly normal. Lungs: Clear to auscultation bilaterally. No rales, rhonchi or wheeze noted. Good air flow in all mcgarry. Heart: Regular rate and rhythm. No murmurs, click, rubs or gallops are noted. Pulses: Peripheral pulses are equal and palpable bilaterally. Extremities: No clubbing, cyanosis nor edema is noted. Psych: Mood and affect appropriate Results see below Medical Decision Making The patient is an 79-year-old female here for a routine visit for management of her chronic conditions. She reports fatigue, which may be correlated with a recent rise in her TSH level to 5, up from 4 six months ago. Though her practice of taking levothyroxine with other medications is not ideal, altering her long- standing routine could cause confusion; therefore, a dosage adjustment is the preferred initial intervention. I will increase her levothyroxine from 50 mcg to 75 mcg daily to address the elevated TSH and associated fatigue, with a plan to recheck her TSH level before her travels. Her other chronic conditions, including hypertension, hyperlipidemia, and vitamin D deficiency, are stable on their current regimens. Refills for her losartan and Zetia will be provided. Preventative care was also addressed. The patient has received her influenza vaccine and was advised to get the single-dose pneumonia vaccine (Prevnar 20). She has declined the COVID-19 vaccine. Plan 1. Hypothyroidism - Increase levothyroxine dose from 50 mc g to 75 mcg daily to address fatigue and elevated TSH. - A 90-day prescription for the new dose will be sent to the pharmacy. - The patient was advised to start the n ew dose as soon as it is available. - Ordered a follow-up, non-fasting TSH l ab to be completed around June 20 or before her trip. - Lab results will be discussed over the phone. 2. Hyperlipidemia - Continue current dose of Zetia. - A prescription refill will be sent to the pharmacy. 3. Hypertension - Continue losartan 25 mg twice daily as blood pressure is well-controlled. - Discussed strategies to improve adhere nce for the evening dose, such as associating it with mealtimes. - A prescription refill will be sent to the pharmacy. 4. Vitamin D Deficiency - Continue current vitamin D supplement as levels are now in the normal range. 5. Health Maintenance - The patient has already received her a nnual influenza vaccine. - Recommended the patient receive the si ngle-dose (Prevnar 20) pneumococcal vaccine. - Patient declined the COVID-19 vaccine. RTO 6 MO FOR AWV, SOONER PRN Patient Instructions - Your thyroid medication dose has been increased. Please start taking the new levothyroxine 75 mcg prescription as soon as you pick it up from the pharmacy. - We have ordered a blood test to rechec k your thyroid level. Please have this done around June 20 or before your trip. You do not need to be fasting for this test. - Continue taking your cholesterol medic ation (Zetia) and blood pressure medication (losartan) as prescribed. Refills for these have been sent to your pharmacy. - When you visit the pharmacy, please as k about getting the single-dose pneumonia shot. - You are up-to-date with your flu shot for this season. Consent The patient verbally consented to the change in her levothyroxine dosage after discussing the rationale. Patient was informed and verbally consented to the use of an ambient scribe for clinic note documentation during this visit. Total time spent caring for the patient today was 30 minutes. This includes time spent before the visit reviewing the chart, time spent during the visit, and time spent after the visit on documentation, reviewing laboratory results, diagnostic imaging, medications, performing a medically necessary evaluation, counseling on diagnoses, care coordination, ordering appropriate tests, ordering appropriate medications, review of tests performed by other providers, reporting test results with the patient, communication with other healthcare providers. [facility] Medical History (Updated 11/01/24 @ 12:51 by Latonia Macedo, [facility]) Arthritis of right shoulder region Fatigue Left anterior shoulder pain Muscle strain of right shoulder Shoulder pain, bilateral Surgical History History of pacemaker History of right shoulder replacement Family History Father Advanced cardiac disease Emphysema of lung Mother No problems noted. Social History (Updated 04/16/24 @ 12:23 by Aaliyah Franz MA) Household Members: None Both parents involved: No Caregiver staying overnight: No Housing: House Are you a primary child care teacher to a significant other at home: No Do you presently have visiting nurse or other home services: No 75 years or older and lives alone: No Alcohol intake: never Patient Tobacco Use Status: Former Tobacco user (quit 40 years ago.) Cigarettes Per Day: 2 Years Smoked: 2 Packs per year/per ci.20 e-Cigarette/Vaping Use: Never Used Second Hand Smoke Exposure: No service: No Current occupational status: retired Cognitive needs: No Hearing needs: Yes (hearing aide) Vision needs: No Questionnaire PHQ-9 Over the last 2 weeks, how often have you been bothered by any of the following problems? 1. Little interest or pleasure in doing things: not at all 2. Feeling down, depressed, or hopeless: not at all 3. Trouble falling or staying asleep, or sleeping too much: not at all 4. Feeling tired or having little energy: not at all 5. Poor appetite or overeating: not at all 6. Feeling bad about yourself - or that you are a failure or have let yourself or your family down: not at all 7. Trouble concentrating on things, such as reading the newspaper or watching television: not at all 8. Moving or speaking so slowly that other people could have noticed. Or the opposite - being so fidgety or restless that you have been moving around a lot more than usual: not at all 9. Thoughts that you would be better off or of hurting yourself in some way: not at all Total score: 0 Source: Developed by Drs. Artem Bustamante, Rhona Yadav, Todd Cage and colleagues, with an educational coty from [employer]. Thrive Questionnaire Date Thrive assessed: 04/30/24 I am a: Patient What is your living situation today?: I have a steady place to live Within the past 12 months, did the food you bought not last and you didn't have the money to get more?: Never true Within the past 12 months, did you worry whether your food would run out before you got money to buy more?: Never true Do you have trouble paying for medicines?: No Do you have trouble getting transportation to medical appointments?: No Do you have trouble paying your heating and electricity bill?: No Do you have trouble taking care of your child, family member or friend?: No Do you have trouble with day-to-day activities such as bathing, preparing meals, shopping, managing finances, etc.?: No Are you currently unemployed and looking for a job?: No Are you interested in more education?: No Please select the resources that you would like help with: None Currently or been in a relationship where the following occur: No concerns reported THRIVE Score: 0 AUDIT C Alcohol Use Questionnaire (AUDIT-C) 1. How often do you have a drink containing alcohol?: Monthly or less 2. How many drinks containing alcohol do you have on a typical day when you are drinking?: 1 or 2 3. How often do you have six or more drinks on one occasion?: Never Total Score: 1 ROSALIE-7 AMB Questionnaire ROSALIE-7 Date ROSALIE - 7 assessed: 04/30/24 Feeling nervous, anxious, or on edge: 0 = Not at all Not being able to stop or control worryin = Not at all Worrying too much about different things: 0 = Not at all Trouble relaxin = Not at all Being so restless that it is hard to sit still: 0 = Not at all Becoming easily annoyed or irritable: 0 = Not at all Feeling afraid as if something awful might happen: 0 = Not at all Total ROSALIE-7 score (0-4 normal; 5-9 mild; 10-14 moderate; 15-21 severe): 0 Source: Developed by Drs. Artem Bustamante, Rhona Yadav, Todd Cage and colleagues, with an educational coty from [employer]. Physical exam (Primary Care) Vital Signs: Last Vital Signs Temp 97.7 F 05/09/25 12:25 Pulse 67 05/09/25 12:25 Resp 14 05/09/25 12:25 BP 126/78 05/09/25 12:25 Pulse Ox 97 05/09/25 12:25 Oxygen Delivery Method Room Air 05/09/25 12:25 BMI result Body Mass Index 29.8 Tobacco/Smoking Status: Tobacco use Status Tobacco use date assessed 05/09/25 05/09/25 12:31 Patient Tobacco Use Status Former Tobacco user (quit 40 05/09/25 12:31 years ago.) e-Cigarette/Vaping Use Never Used 05/09/25 12:24 PHQ-9: PHQ-9 Score PHQ-9: Total score 0 05/09/25 12:24 Thrive Assessment: Date of Thrive Assessment Date Thrive assessed 04/30/24 05/09/25 12:24 Currently or been in a relationship where the following occur: No concerns reported Results Reviewed Results Reviewed: Laboratory 05/02/25 Result Units Range Interpretation Provider Comments Sodium Level 143 mmol/L (135-145) Potassium Level 4.4 mmol/L (3.3-5.1) Chloride Level 111 mmol/L (96-108) High Carbon Dioxide Level 27 mmol/L (22-29) Anion Gap 9 (12-20) Low Blood Urea Nitrogen 17 mg/dL (9-16) High Creatinine 1.03 mg/dL (0.5-1.4) Estimated Creatinine Clearance Calc Not Reportable Estimat Glomerular Filtration Rate 51 Random Glucose 108 mg/dL (60-115) Calcium Level 9.5 mg/dL (8.4-10.2) Total Bilirubin 0.7 mg/dL (0.0-1.0) Aspartate Amino Transf (AST/SGOT) 26 U/L (5-31) Alanine Aminotransferase (ALT/SGPT) 17 U/L (0-31) Alkaline Phosphatase 86 U/L (39-117) Total Protein 7.0 g/dL (6.5-8.0) Albumin 4.3 g/dL (3.5-5.0) Triglycerides Level 89 mg/dL (<150) Cholesterol Level 177 mg/dL (<200) LDL Cholesterol, Calculated 108 mg/dL (<100) High HDL Cholesterol 52 mg/dL (>40) Vitamin B12 Level 393 pg/mL (200-900) 25-Hydroxy Vitamin D Total 46.7 ng/mL (>30) Folate 10.2 ng/mL (> or = 4.0) Thyroid Stimulating Hormone (TSH) 5.37 uIU/mL (0.32-4.0) High Free Thyroxine 0.96 ng/dL (0.71-1.85) Coding Level of Care Code Est Pt Level 4 (65970) Complex EM visit Add On G2211 Diagnoses Hypertension, essential I10 High cholesterol E78.00 Hypothyroidism (acquired) E03.9 Vitamin D deficiency E55.9 Assessment & Plan Assessment & Plan (1) Hypertension, essential: Code(s): I10 - Essential (primary) hypertension Category: Medical (2) High cholesterol: Code(s): E78.00 - Pure hypercholesterolemia, unspecified Category: Medical (3) Hypothyroidism (acquired): Code(s): E03.9 - Hypothyroidism, unspecified Category: Medical (4) Vitamin D deficiency: Code(s): E55.9 - Vitamin D deficiency, unspecified Category: Medical Plan . Orders: Orders TSH reflex Free T4 4 Weeks E03.9 - Hypothyroidism, unspecified Medications: New levothyroxine (Synthroid) 75 mcg PO DAILY 90 tabs 0RF Refilled losartan 25 mg PO BID 180 tabs 0RF ezetimibe (Zetia) 10 mg PO DAILY 90 tabs 1RF Discontinued levothyroxine Discontinued Reason: Doctor's Order 50 mcg PO DAILY 90 tabs 1RF Patient Instructions: Patient Instructions - Your thyroid medication dose has been increased. Please start taking the new levothyroxine 75 mcg prescription as soon as you pick it up from the pharmacy. - We have ordered a blood test to recheck your thyroid level. Please have this done around June 20 or before your trip. You do not need to be fasting for this test. - Continue taking your cholesterol medication (Zetia) and blood pressure medication (losartan) as prescribed. Refills for these have been sent to your pharmacy. - When you visit the pharmacy, please ask about getting the single-dose pneumonia shot. - You are up-to-date with your flu shot for this season.
[2025-05-09 12:25] VITALS: BP 126/78; PULSE 67; RESP 14; TEMP 36.5; O2SAT 97; BMI 29.8
== END 2025-05-09 13:02 | disposition home or self-care (01) ==
LOC: HO.HMCFM 12:14
PROVIDERS: PCP Nurse Practitioner Family; Visit Provider Nurse Practitioner Family
DX: I10 Essential (primary) hypertension (principal); E78.00 Pure hypercholesterolemia, unspecified; E03.9 Hypothyroidism, unspecified; E55.9 Vitamin D deficiency, unspecified

== ENCOUNTER 2025-06-20 08:28 | Outpatient (REF) | payer MEDICARE, SELFPAY ==
--- OUTSIDE RECORDS SUMMARY | 2025-06-20 08:40 | XMS_ITS | Clinical Summary ---
Author Organization [facility] Address [address] [place] [id number] Phone Care Team Providers Care Rn Geriatric Name Role Phone Arti Rowley NP Primary [...] file Insurance [facility] MEDICARE PART A & B O MEDICARE REPLACEMENT MEDICARE PART A & B MEDICARE REPLACEMENT MEDICARE PART A & B Member Subscriber Plan / Payer (Ef fective 2008-Present) Name:Fannie Camargo Member ID:[id number] Relation to Subscriber:Self Name:Fannie Camargo Subscriber ID:[id number] Payer ID:[id number] Group ID:Not on file Type:Medicare Address: [place] [id number] [facility] MEDICARE PART A & B [facility] MEDICARE REPLACEMENT MEDICARE PART A & B [facility] MEDICARE REPLACEMENT MEDICARE PART A & B [facility] MEDICARE REPLACEMENT MEDICARE PART A & B [employer] P[employer] MEDICARE REPLACEMENT Care Teams Rn Geriatric Relationship Specialty Start Date End Date Arti Rowley NP PCP - General Family Medicine 03/16/21 Additional Source Comments The information contained in this document represents components of the legal health record. It is not the complete legal health record.[facility]
--- OUTSIDE RECORDS SUMMARY | 2025-06-20 08:40 | XMS_ITS | Clinical Summary ---
Author Organization [facility] Prior to 11/27/24 Address [address] [place] [address] Care Team Providers Care Billiard Table Assembler Name Role Phone Unavailable Primary Care Provider [...]
--- OUTSIDE RECORDS SUMMARY | 2025-06-20 08:40 | XMS_ITS | Clinical Summary ---
Author Organization [facility] ity Address [address] [place] [address] Care Team Providers Care Poolroom/Poolhall Manager Name Role Phone Unavailable Primary Care [...] Depression Screening 06/30/2024 COVID-19 Vaccine ( - 2024-2 6 season) 2025 Influenza Vaccine (#1) 2025 HIB [...]
== END 2025-06-20 08:29 | disposition home or self-care (01) ==
LOC: HO.10HDL 08:28
PROVIDERS: Visit Provider Nurse Practitioner Family
DX: E03.9 Hypothyroidism, unspecified (principal)
CPT/HCPCS: 36415; 84443